=== PATIENT | female | born 1950 | race Caucasian/White ===

== ENCOUNTER → 2019-04-02 | Outpatient (CLI) | payer OTHER, MEDICARE ==
--- NOTE | 2019-04-03 10:29 | REP ---
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 No comparison imaging. The patient reports a having had a partial left glossectomy on February 08, 2019. There is also a remote prior history of gender transition/sexual re-assignment surgery. I am not aware if this patient has undergone or is undergoing radiation therapy. COMPARISONS: No comparison imaging. TECHNIQUE: 47 minutes following the intravenous injection of a 8.55 mCi dose of F-18 FDG, three-dimensional PET scintigraphy is acquired from the skull base to the proximal thighs. Triplanar noncontrast CT scanning is acquired through the same anatomic range for attenuation correction, and image registration with scan parameters optimized to minimize radiation exposure to the patient. PET scintigraphy and CT datasets were fused and displayed on a workstation with multiplanar and projection display capability. PET/CT FINDINGS: There is asymmetric skeletal muscle hypermetabolic uptake in the remaining right side of the tongue and in the floor of mouth structures. There is no mass or adenopathy here on accompanying CT and this it is most likely normal variant skeletal muscle uptake possibly related to recent surgery and if given, radiation therapy. Maximum standard uptake value in the tongue is 9.95, in the right floor of the mouth 8.71, and in the left floor the mouth 7.87. There is no meme hypermetabolic uptake in the head and neck soft tissues. There is an area of mild fascial edema and/or thickening resembling inflammation in the subcutaneous fat and underlying fascia in the upper mid back just to the right of midline between the scapulae. There is hypermetabolic uptake here, mild in degree, maximum standard uptake value 3.77. This is of uncertain significance. There is no clearly defined mass. Question history of trauma or inflammatory changes in this location. There is no abnormal intrathoracic hypermetabolic uptake. No lung mass or significant nodule is appreciated. Breast augmentation implants are visible. There is no abnormal hypermetabolic uptake in the abdomen or pelvis. There is a feeding gastrostomy tube in the epigastric region with very slight metabolic activity at its insertion site . There is mild skeletal muscle uptake adjacent to the greater trochanters bilaterally. No abnormal pelvic hypermetabolic uptake. IMPRESSION: There is non-meme skeletal muscle hypermetabolic uptake in the remaining right tongue and floor of mouth musculature bilaterally most likely normal variant. No hypermetabolic adenopathy is seen in the head and neck soft tissues. There is a focus of mildly hypermetabolic uptake of uncertain significance and the myofascial subcutaneous fat interface in the upper mid back just to the right of midline. This requires correlation with physical exam and history to further evaluate. No clearly definable mass. Otherwise negative. Electronically Signed by Froilan Flores MD 04/03/2019 01:45 P
== END ==
LOC: M PLARAD 10:56
DX: C02.9 Malignant neoplasm of tongue, unspecified (principal)
CPT/HCPCS: 78815; A9552

== ENCOUNTER → 2019-04-18 | Outpatient (CLI) | payer OTHER, MEDICARE ==
[~2019-04-18] MED LIST: AMLO10TA5 PO; ARIP1TAB44 PO; GABA-843 PO; LORA1TAB12 PO; PRAV40TA2 PO; QUET400T PO; SERT-138 PO; SPIR100T3 PO; SYNT88TA2 PO; TRAZ-252 PO
--- NOTE | 2019-04-19 15:55 | RADONC ---
RADIATION ONCOLOGY CONSULTATION NOTE DATE: 04/18/2019 CHART NUMBER: [id number] DIAGNOSIS: Left sided tongue carcinoma. STAGE: IVB, pT3, pN3B, M0, grade 3. ECOG PERFORMANCE STATUS: 0. CONSULTATION NOTE: Ms. 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 HISTORY OF PRESENT ILLNESS: The patient was in the usual state of health who was found to have a lesion present over her left tongue. On 02/13/2019 the patient underwent a left hemiglossectomy and left radical neck dissection. Pathology revealed a 4.5 cm x 3.2 cm x 1.8 cm poorly differentiated squamous cell carcinoma of the left lateral tongue. The tumor thickness was 17 mm and the depth of invasion was 14 mm. The closest margin of resection was 6 mm. Lymphovascular invasion was present. Perineural invasion was present. A total of 45 cervical lymph nodes were sampled and four were positive for metastatic disease. The largest metastatic lymph node was measured at 4 cm. There was noted to be extranodal extension present. The lymph nodes were present at levels Ib, as well as level II and level IV in the neck. The patient is healing nicely since surgery and is now presenting to us for discussion of postoperative radiation therapy as a therapeutic option. PAST MEDICAL HISTORY: The patient's past medical history is positive for hyperlipidemia, actinic keratosis, hypothyroidism, depressive disorder, transsexual conversion, augmented mammoplasty with prostatic implants, hypercalcemia, borderline personality disorder, methicillin-resistant Staphylococcus aureus, abnormal liver functions, obesity, benign essential hypertension, impaired fasting glucose, hypertension, hypothyroidism, dysplastic oral leukoplakia. ALLERGIES: The patient is allergic to VIOXX, PROZAC and ZOLOFT. She is also reported to be allergic to GEMFIBROZIL. SOCIAL HISTORY: The patient does not smoke cigarettes nor abuse alcohol. FAMILY HISTORY: The patient's family history is positive for a mother with cervical cancer. REVIEW OF SYSTEMS: The patient's review of systems is positive for some physical limitations as well as difficulty swallowing and speaking since tongue surgery. She has some decreased energy as well as shortness of breath. Review of systems is otherwise noncontributory. She denies nausea, vomiting, fevers, chills, night sweats, diplopia, headaches, anxiety, anorexia, weight loss, visual disturbances, bowel difficulties, hearing loss, chest pains, rectal bleeding. PHYSICAL EXAMINATION: The patient is a well-developed 68-year-old white transgender female who in no acute distress. HEENT: Exam is normocephalic, atraumatic. Extraocular movements are intact. Examination of the patient's oral cavity reveals poor dentition. She is missing many teeth. She is also status post hemiglossectomy consistent with her above history. I do not appreciate any nodularity, ulceration or evidence of recurrent disease in the oral cavity. There is no palpable cervical preauricular, cervical, supraclavicular, infraclavicular, or axillary lymphadenopathy present. She has a healed surgical scar present consistent with her left modified radical lymph node dissection. Her lungs are clear to auscultation and percussion. Her heart has regular rate and rhythm. The remainder of her physical exam was deferred at this time. MEDICAL NECESSITY: IMRT/IGRT is clinically indicated for the highly conformal dose planning required. The target volume is in close proximity to critical structures, such as the normal brain, brainstem, eyes, optic nerves, spinal cord, parotid glands, and mandible. The volume of interest must be covered with narrow margins to adequately protect immediately adjacent structures. The plan requires interpretation of complex testing such as CT localization. As noted above, special planning (IMRT) and localizing (IGRT) is required and essential to maximally protect sensitive normal tissue structures which cannot be accomplished using conventional 3-dimensional planning. ASSESSMENT: Clearly the patient is a candidate for external beam radiation therapy and I have so informed her. I have discussed with the patient in detail the potential benefits as well as possible acute and chronic sequelae of external beam radiation therapy. We discussed the logistics of treatment planning, simulation and subsequent fractionated daily radiation treatments. The patient already has a PEG tube in place which should expedite the initiation of our therapy. She has been instructed given dietary instructions as well as oral cavity instructions and we have discussed the use of the PEG tube and feed thereof. The patient reports that she was seen by her dentist, Dr. Juanis Roldan, in [place], [place], just 3 months ago. I am referring her back and asked her to contact Dr. Roldan's office to get dental clearance prior to initiation of radiation. I made clear that any dental extractions need to be done prior to radiation beginning. I once again have discussed the various difficulties with radiation treatment. The patient has been seen her medical oncologist, Dr. Deal, just prior to my visit. I am deferring to Dr. Deal and the patient with regards to the role of any systemic therapy. I have however reviewed NCCN guidelines version 3.2019 regarding oral cavity carcinoma. In this case this patient has a stage T3 disease which underwent surgery and primary lymph node dissection for what turned out to be a pathologic stage NIIIB. The guidelines recommend systemic therapy as well as RT for people with adverse features. Those adverse features include extranodal extension, positive margins, pathologic stage T3 lesions as well as pathologic meme NIII disease or meme disease at levels IV and V as well as perineural invasion and lymphatic invasion. The patient has all of these risk features. This put her at very high risk and I suspect Dr. Deal will recommend combined radiaiton with systemic therapy. This is a category I recommendation according to the NCCN guidelines. I have also placed this patient on our list for discussion at our multidisciplinary tumor conference. Further recommendations will be made as indicated. Thank you for allowing us to participate in the care of this very pleasant woman, if I could be of any further assistance please free to contact me at anytime. CC: Dr. Angelica Zhong cc: MD COCO Cadena
== END ==
LOC: M ONCR 12:47
PROVIDERS: ATTEND Radiology Radiation Oncology
DX: C02.9 Malignant neoplasm of tongue, unspecified (principal)

== ENCOUNTER → 2019-04-22 | Outpatient (CLI) | payer OTHER, MEDICARE ==
[~2019-04-22] MED LIST changes: +LIDOCAINE 1% MDV 20ML VIAL As Ordered ONE; +ceFAZolin 1GM INJ (J0690 PER 500MG) As Ordered ONE
[2019-04-22 15:08] VITALS: BP 169/72
--- NOTE | 2019-04-22 15:49 | REP ---
IR Ultrasound and fluoroscopy-guided port placement. IR Ultrasound of the neck. Clinical information: Head and neck cancer. Physician: Dr. Castelan. Procedure: The patient was advised of the benefits, risks, and alternatives of the procedure and informed consent was obtained. A time-out was performed with verification of the patient's name, MRN, site of procedure and type of procedure to be performed. The patient was positioned in the supine position on the angiographic table. The site was prepped and draped in the usual sterile fashion. Moderate sedation was not performed. The physician spent 45 minutes of continuous face to face time with the patient. Ultrasound of the neck reveals a patent and compressible right internal jugular vein. A charge operator radiograph reveals no gross abnormality. The neck and anterior chest wall were anesthetized with lidocaine. The right internal jugular vein was accessed using a microintroducer needle under ultrasound guidance, via a lateral approach. An 018 wire was advanced into the superior vena cava, the needle was removed and a microsheath was placed. An Amplatz wire was then passed into the inferior vena cava. An incision at the internal jugular vein access site and anterior chest wall were made using a scalpel. An incision was made at the anterior chest wall. A small pocket was created using a combination of blunt and sharp dissection. A tunneling device was then used to pass the catheter from the pocket to the neck puncture site. An 8-Macanese Angio dynamics Smart power port was then positioned in the pocket. The catheter was then measured and cut. The introducer sheath was exchanged for a peel-away sheath. The catheter was passed through the peel-away sheath into the internal jugular vein and the peel-away sheath was removed. The port tip was positioned at the cavoatrial junction . The port was then accessed with a Wen needle. The port flushes and aspirates well. The puncture site in the neck was closed. The chest wall incision was then closed with 2-0 Vicryl and 4-0 Monocryl. Glue and Steri-Strips were applied. A sterile dressing was then applied. The patient tolerated the procedure well and was returned to the PRU in stable condition. Estimated blood loss: <5 ml. Complications: None. Conclusion: 1. Successful placement of an 8-Macanese Angio dynamics Smart power port via the right internal jugular vein. The port is ready for immediate use. 2. Patient to follow up in IR clinic in 2 weeks. Thank you for this referral. Electronically Signed by Domitila Castelan MD 04/22/2019 03:48 P
== END ==
LOC: M IRPRO 08:56
PROVIDERS: ATTEND Radiology Diagnostic Radiology
DX: C76.0 Malignant neoplasm of head, face and neck (principal)
CPT/HCPCS: 36561; 76937; C1769; C1788; C1894; J0690

== ENCOUNTER → 2019-04-23 | Outpatient (CLI) | payer OTHER, MEDICARE ==
[~2019-04-23] MED LIST changes: +ISOVUE-370 76% 100ML VIAL (Q9967) As Ordered ONE; -LIDOCAINE 1% MDV 20ML VIAL As Ordered ONE; -ceFAZolin 1GM INJ (J0690 PER 500MG) As Ordered ONE
--- NOTE | 2019-04-24 07:08 | REP ---
Clinical: History of head and neck cancer. Technique: Axial contrast enhanced images from the thoracic inlet to the upper abdomen with coronal and sagittal re-formations using 100 ml Isovue 370 intravenous contrast material. Comparison: PET-CT dated 04/02/2019. Chest CT dated 02/07/2019. Findings: The bilateral lung noguera are well-aerated and clear. No focal consolidation, nodule or mass lesion is appreciated. No pleural effusion. No pneumothorax. The tracheobronchial tree is patent. The mediastinum appears normal and without adenopathy. Thoracic aorta, pulmonary vasculature and heart/pericardium are within normal limits. Surrounding musculoskeletal structures are intact without focal abnormality. 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 Impression: 1. No obvious significant mediastinal or pleuroparenchymal process appreciated. Electronically Signed by Abdelrahman Rosales MD 04/24/2019 06:59 A
--- NOTE | 2019-04-24 08:40 | REP ---
CT soft tissue neck: 04/23/2019. Indication: Carcinoma. Comparison: Last month. Technique: Axial images of the neck soft tissues were obtained following 75 ml of IV Isovue 370 with coronal and sagittal reconstructions provided. Findings: Evaluation of the tongue is suboptimal secondary to adjacent dental amalgam associated streak artifact. No definite area of focal pathologic IV contrast enhancement is detected. Postoperative sequelae are present. There is no evidence of cervical lymphadenopathy. Bilateral carotid atherosclerotic disease is present. Please see dedicated chest CT report for additional details. The nondominant right vertebral artery appears to end as PICA. No acute ocular, intraorbital or intracranial abnormalities are detected. Impression: Stable examination compared to last month. No definite solid soft tissue pathologic mass, fluid collection or cervical lymphadenopathy. Electronically Signed by Benjamin Salcedo DO 04/24/2019 08:32 A
== END ==
LOC: M RAD 16:16
PROVIDERS: ATTEND Internal Medicine Medical Oncology
DX: C02.9 Malignant neoplasm of tongue, unspecified (principal); Z95.828 Presence of other vascular implants and grafts
CPT/HCPCS: 70491; 71260; Q9967

== ENCOUNTER → 2019-05-07 | Outpatient (POV) | payer OTHER, MEDICARE ==
[~2019-05-07] VITALS: Ht 175.3 cm; Wt 95.5 kg
[~2019-05-07] MED LIST changes: -ISOVUE-370 76% 100ML VIAL (Q9967) As Ordered ONE
[2019-05-07 09:00] VITALS: BP 131/73
--- NOTE | 2019-05-08 08:22 | IRPN ---
[facility] IR Progress Note IR Progress Note DATE: May 07, 2019 FOLLOW-UP: Status post port placement. Patient doing well. No fevers or chills. No pain. Port has not been used yet. ON EXAMINATION: Port site looks to be healing well. No redness, tenderness, discharge or fluctuance. IMPRESSION: Doing well status post port placement. Patient's port has not been accessed yet. Port was flushed and instilled with heparin today. No further follow-up required unless initiated by patient and or referring provider. Thank you for this referral Allergies Coded Allergies: rofecoxib (Verified Adverse Reaction, Mild, RESTLESS LEGS, 04/18/19) RESTLESS LEGS VS,Fishbone, I+O VS, Fishbone, I+O Vital Signs Date Time Temp Pulse Resp B/P (MAP) Pulse Ox O2 Delivery O2 Flow Rate FiO2 05/07/19 09:00 97.9 81 16 131/73 (92) 99 Room Air ANDER METCALF MD May 08, 2019 08:22
== END ==
LOC: M IRPOV 08:42
PROVIDERS: ATTEND Radiology Diagnostic Radiology
DX: Z45.2 Encounter for adjustment and management of vascular access device (principal)

== ENCOUNTER 2019-06-04 08:37 | Outpatient (CLI) | payer OTHER, MEDICARE ==
[~2019-06-04] VITALS: Ht 175.3 cm; Wt 95.5 kg
[2019-06-04 08:45] VITALS: BP 127/68
[2019-06-04] MEDS ORDERED: SODIUM CHLORIDE 0.9% INJ 10 ML SYR IV SCH (09:00)
[2019-06-10] MEDS ORDERED: ONDA8TAB7 PO (14:04)
[2019-06-10] MEDS ORDERED: PROC10TA4 PO (14:07)
[2019-06-10] MEDS ORDERED: OLAN10TA2 PO (14:07)
[2019-06-10] MEDS ORDERED: DEXA4TA PO ×2 (15:19→15:59)
== END 2019-06-04 09:25 | disposition home or self-care (01) ==
LOC: M INFU 08:37
PROVIDERS: ATTEND Radiology Diagnostic Radiology
DX: C02.1 Malignant neoplasm of border of tongue (principal); Z88.6 Allergy status to analgesic agent

== ENCOUNTER → 2019-06-18 | Outpatient (RCR) | payer OTHER, MEDICARE ==
[2019-05-30 09:53] LABS: BASO % 0.3 % (0.0-1.0); EOS # 0.2 10^3/uL (0.0-0.5); EOS % 2.6 % (0.0-3.0); HEMATOCRIT 40.9 % (36.0-47.0); HEMOGLOBIN 13.3 g/dl (12.0-15.5); LYMPH # 1.3 10^3/uL (1.5-5.0); LYMPH % 17.7 % (24.0-44.0); MEAN CORPUSCULAR HEMOGLOBIN 30.1 pg (27.0-33.0); MEAN CORPUSCULAR HGB CONC 32.5 g/dl (32.0-36.5); MEAN CORPUSCULAR VOLUME 92.5 fl (80.0-96.0); MONO # 0.8 10^3/uL (0.0-0.8); MONO % 10.6 % (0.0-5.0); NEUTROPHILS # 4.8 10^3/uL (1.5-8.5); NEUTROPHILS % 67.9 % (36.0-66.0); PLATELET COUNT, AUTOMATED 281 10^3/uL (150-450); RED BLOOD COUNT 4.42 10^6/uL (4.00-5.40); WHITE BLOOD COUNT 7.1 10^3/uL (4.0-10.0)
--- NOTE | 2019-05-31 07:45 | RADONC ---
RADIATION ONCOLOGY SIMULATION NOTE DATE: 05/30/2019 CHART NUMBER: [id number] Ms. Mcknight was taken to the CT scan for CT simulation of her head and neck field. CT was accomplished without difficulty or discomfort. Radiation treatment planning is underway and radiation treatments will begin subsequently. An immobilization device was created without difficulty or discomfort. It will be used throughout the course of treatment. A mask was included with that immobilization device. I was physically present throughout the course CT simulation.
--- NOTE | 2019-06-17 12:06 | RADONC ---
RADIATION ONCOLOGY PROGRESS NOTE DATE: 06/17/2019 CHART #: [id number] Luciana Mcknight with a diagnosis of carcinoma of the tongue is currently receiving local regional radiotherapy via IMRT and she has achieved a dose to date of 600 cGy. She is tolerating her radiotherapy reasonably well and denies any nausea, vomiting, coughing, sputum production, hemoptysis, significant alteration of taste, redness of the mouth or oral pain. Her energy level is somewhat diminished, but she is able to maintain most of her day-to-day activities without any alteration of her lifestyle. EXAMINATION FINDINGS: The skin within the irradiated volume shows neither erythema nor desquamation. There is no palpable peripheral lymphadenopathy noted in the cervical, supraclavicular, axillary or inguinal lymph node chains. Lungs are clear to auscultation and percussion. Examination of the oral cavity reveals no evidence of mucositis. No lymph nodes are palpable. IMPRESSION: Tolerating therapy well. PLAN: Treatments to continue.
[~2019-06-18] MED LIST changes: +DEXA4TA PO; +OLAN10TA2 PO; +ONDA8TAB7 PO; +PROC10TA4 PO
== END ==
LOC: M ONCR 05-30 09:24
PROVIDERS: ATTEND Radiology Radiation Oncology
DX: C02.1 Malignant neoplasm of border of tongue (principal)

== ENCOUNTER → 2019-07-19 | Outpatient (RCR) | payer OTHER, MEDICARE ==
--- NOTE | 2019-06-25 06:47 | RADONC ---
RADIATION ONCOLOGY PROGRESS NOTE DATE: 06/24/2019 CHART NUMBER: [id number] Ms. Mcknight is presently at a dose of 1440 cGy to her tongue and overall is tolerating her treatments fairly well. She is complaining of some dizziness, a cough with some thickening sputum as well as taste changes. REVIEW OF SYSTEMS: The patient's review of systems is noncontributory. She denies nausea, vomiting, fevers, chills, night sweats, diplopia, headaches, anxiety or depression, anorexia, weight loss, visual disturbances, chest pain, urinary or bowel difficulties, bone pain, or neurological problems. PHYSICAL EXAMINATION: The patient's skin is in good condition with no evidence of radiation change present. There is no moist or dry desquamation. The remainder of her physical exam remains unchanged. Ms. Mcknight is tolerating treatments fairly well and radiation will continue as scheduled. We will continue to monitor her with regards to her cough and other issues.
--- NOTE | 2019-07-02 08:38 | RADONC ---
RADIATION ONCOLOGY PROGRESS NOTE DATE: 07/01/2019 CHART NUMBER: [id number] PROGRESS NOTE: Ms. Mcknight is presently at a dose of 2400 cGy to her oral cavity and is tolerating treatments with some difficulty. She reports a change in her saliva, although she is still able to swallow. She is using her feeding tube for medications. She reports that she is taking 5 cans of dietary supplement day. REVIEW OF SYSTEMS: The patient's review of systems is positive for some discomfort upon swallowing but is otherwise largely noncontributory. Denies nausea, vomiting, fevers, chills, night sweats, diplopia, headaches, anxiety or depression, anorexia, weight loss, visual disturbances, chest pain, urinary or bowel difficulties, bone pain, or neurological problems. PHYSICAL EXAMINATION: The patient's skin is in good condition with no evidence of moist or dry desquamation. Her oral cavity shows some mild mucositis. Her saliva appears thickened. The remainder of her physical exam is largely unchanged except her weight, which is down 2.4 pounds this week. ASSESSMENT: The patient is tolerating treatments well. She has been given dietary instructions. I have instructed her to gargle with warm water salt and baking soda routinely. She is also using Miracle Mouthwash. Radiation is tolerated at this point and will continue as scheduled.
--- NOTE | 2019-07-08 11:22 | RADONC ---
RADIATION ONCOLOGY PROGRESS NOTE DATE: 07/08/2019 CHART NUMBER: [id number] Ms. Mcknight is presently at a dose of 3400 cGy to her tongue and is tolerating treatments fairly well with no significant difficulties related to her radiation therapy other than discomfort and pain of the face with swallowing. The patient's review of systems is positive for pain upon swallowing and discomfort of the muscle the face but is otherwise noncontributory. She denies nausea, vomiting, fevers, chills, night sweats, diplopia, headaches, anxiety or depression, anorexia, weight loss, visual disturbances, chest pain, urinary or bowel difficulties, bone pain, or neurological problems. PHYSICAL EXAMINATION: The patient's skin is in good condition with no evidence of moist or dry desquamation. Her oral cavity shows some mild mucositis. Her weight today is actually up 1 pound at 218 pounds. The remainder of physical exam remains unchanged. Ms. Mcknight is tolerating treatments quite well and radiation will continue as scheduled.
--- NOTE | 2019-07-16 15:20 | RADONC ---
RADIATION ONCOLOGY PROGRESS NOTE DATE OF SERVICE: 07/15/2019 CHART NUMBER: [id number] Ms. Mcknight is presently a dose of 4400 cGy to her tongue and overall is tolerating her treatments fairly well. She reports that her taste sensation has changed. She continues to drink diet Pepsi. She is taking five to six cans of dietary supplements via her feeding tube a day. She continues to have some discomfort in the throat upon swallowing. The patient's review of systems is noncontributory. Denies nausea, vomiting, fevers, chills, night sweats, diplopia, headaches, anxiety or depression, anorexia, weight loss, visual disturbances, chest pain, urinary or bowel difficulties, bone pain, or neurological problems. PHYSICAL EXAMINATION The patient's skin is in good condition with no evidence of moist or dry desquamation. Her oral cavity shows some mucositis present. Her weight is down 8 pounds. The remainder of her physical exam remains unchanged. The patient reports that she gained 30-35 pounds prior to initiation of treatment because she knew she would be losing weight. She is doing quite well at this point and radiation will continue as scheduled. I recommend that she discontinue drinking diet Pepsi as carbonated drinks may cause more discomfort. I have given her dietary recommendations.
[~2019-07-19] MED LIST changes: +LEVA1TAB2 PO; -LORA1TAB12 PO; +LORA1TAB4 PO; +ONDA8TAB10 PO; -ONDA8TAB7 PO; +SILV40CR EXT
== END ==
LOC: M ONCR 06-20 07:34
PROVIDERS: ATTEND Radiology Radiation Oncology
DX: C02.1 Malignant neoplasm of border of tongue (principal)

== ENCOUNTER 2019-07-30 07:26 | Outpatient (RCR) | payer OTHER, MEDICARE ==
--- NOTE | 2019-07-22 09:43 | MEDONC ---
MEDICAL ONCOLOGY TELEPHONE CALL DATE OF SERVICE: 07/20/2019 I called Luciana to inquire how her oral symptoms are. She says the primary issue is clearing saliva and her gag reflex. From the time she was a small child, she has had difficulties with gag reflex. From her primary care doctor, she got a prescription for Magic Mouthwash and is swish and spitting and swish and swallowing this. It seems to be helping somewhat. I asked if she needed an oral rinse for pain per se, and she declined. I offered an oral rinse of morphine (a 2% solution can be given 10-15 mL every 3 hours p.r.n. for radiation esophagitis pain), but she declined. We talked about her fluid intake via PEG, her Boost intake. She is trying to keep to four cans a day. She asks about TPN. I counseled this is a last resort given the risk for infection. She asked if dextrose could be added to her daily fluids. We can absolutely do this, but as long as she is able, I asked her to please continue taking in the liquid food by PEG. Meanwhile, she says she will continue through the weekend with Magic Mouthwash, using this every few hours. She has gotten on a schedule, and it seems to be helping somewhat. She will let us know if she needs something more. This call was at 4:00 p.m. on 07/20/2019. Electronically Signed by Jackelyn Deal MD 07/22/2019 05:14 P DD: Jackelyn Deal MD 07/20/2019 03:58 P DT: aml 07/22/2019 09:37 A CC:
--- NOTE | 2019-07-22 13:09 | RADONC ---
RADIATION ONCOLOGY PROGRESS NOTE DATE: 07/22/2019 CHART NUMBER: [id number] PROGRESS NOTE: Ms. Mcknight is presently at a dose of 5400 cGy to her oral tongue and overall is tolerating her treatments remarkably well. At this time, she reports just some moderate amount of discomfort upon swallowing. She does have some xerostomia. Her skin is not causing her any problems. REVIEW OF SYSTEMS: The patient's review of systems is positive for the above, but is otherwise noncontributory. Denies nausea, vomiting, fevers, chills, night sweats, diplopia, headaches, anxiety or depression, anorexia, weight loss, visual disturbances, chest pain, urinary or bowel difficulties, bone pain, or neurological problems. PHYSICAL EXAMINATION: The patient's weight today is 208.4 pounds, down 2 pounds since last week. Her skin is in good condition with no evidence of moist or dry desquamation. There is some erythema present. Her oral cavity reveals moderate amount of mucositis. There is some xerostomia present. The remainder of physical exam is unchanged. Ms. Mcknight is tolerating her treatments quite well. Once again, we have reinforced the need for continued gargling with some warm water, a little salt and baking soda to keep her mouth fresh. I have suggested that she do this even hourly if her mucous becomes thick. She reports that she has been doing this more frequently and is actually doing quite well. In addition, the patient does have a bottle of viscous lidocaine which she is carrying with her. I have taken a xerox of that. Apparently, she reports that she has only needed to use it twice since initiation of treatment and is not having significant pain. The patient does have a low grade fever today at 101.3 degrees. Her lungs are clear to auscultation and percussion. In light of the low grade fever, I have ordered a CBC to be done with differential today. In addition, I have given the patient a prescription for Levaquin antibiotics. Radiation will continue as scheduled and is approaching completion.
--- NOTE | 2019-07-29 10:58 | RADONC ---
RADIATION ONCOLOGY PROGRESS NOTE DATE OF SERVICE: 07/29/2019 CHART NUMBER: [id number]. 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 So far, she has received dose of 6400 cGy. Her main concern is weight loss. She has lost about 5 pounds since last week, and she has dryness of mouth and producing thick phlegm. She is using gargling with warm water and baking soda. REVIEW OF SYSTEMS: As mentioned. She has lost about 5 pounds since last week. She denies nausea, vomiting, fever, chills, and night sweats. She has dryness of mouth and also producing thick sputum. PHYSICAL EXAMINATION: There is dry desquamative skin reaction on the left supraclavicular area. She said it is improved with silvadene cream. Oral cavity shows moderate amount of mucositis and thick saliva. The PEG site is clear. Overall, she is tolerating treatment well. She was advised continuous mouthwash and gargling with warm water and baking soda. She is also using viscous lidocaine. She is recommended continuous treatment as planned. MTDD
--- NOTE | 2019-07-30 15:06 | RADONC ---
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 STAGE: Pathological stage pT3, N2, M0. Ms. Mcknight had the diagnosis of the oral tongue and she is status post glossectomy and neck dissection on 03/08/2019. She started radiation therapy on 06/13/2019. So far he has recieved dose of 7000 cGy in 35 fractions from to 07/30/2009 in 47 elapsed days. Radiation therapy was delivered using IMRT with 6 Mev photon beams. Her treatment was uneventful. She developed significant skin reactions in both supraclavicular area and she was treated with Silvadene cream with some improvement. She was advised to continue followup care with the physicians involved and she was also asked to return here in 1 month for followup. COCO
[2019-07-31] MEDS ORDERED: PRAV40TA2 PO (23:57)
[2019-08-01] MEDS ORDERED: DEXA4TA PO (00:46)
[2019-08-07] MEDS ORDERED: SCOP1PAT2 TOP (17:21)
[2019-08-07] MEDS ORDERED: ATRO1OPD SL (17:21)
== END 2019-08-17 ==
LOC: M ONCR 07:26
PROVIDERS: ATTEND Radiology Radiation Oncology
DX: C02.1 Malignant neoplasm of border of tongue (principal)

== ENCOUNTER 2019-07-31 16:33 | Inpatient (IN) | payer OTHER, MEDICARE ==
[~2019-07-31] VITALS: Ht 175.3 cm; Wt 92.4 kg
[2019-07-31 18:16] LABS: HEMATOCRIT 29.7 % (36.0-47.0); HEMOGLOBIN 9.6 g/dl (12.0-15.5); MEAN CORPUSCULAR HEMOGLOBIN 30.2 pg (27.0-33.0); MEAN CORPUSCULAR HGB CONC 32.3 g/dl (32.0-36.5); MEAN CORPUSCULAR VOLUME 93.4 fl (80.0-96.0); PLATELET COUNT, AUTOMATED 258 10^3/uL (150-450); RED BLOOD COUNT 3.18 10^6/uL (4.00-5.40); WHITE BLOOD COUNT 2.8 10^3/uL (4.0-10.0)
[2019-07-31 18:33] LABS: CREATININE FOR GFR 2.1 MG/DL (0.55-1.30); POTASSIUM SERUM 4.8 MEQ/L (3.5-5.1)
[2019-07-31 19:15] LABS: ANISOCYTOSIS 1+; ATYPICAL LYMPH 3 % (0-5); EOSINOPHILS 2 % (0-3); LYMPHOCYTES 9 % (16-44); METAMYELOCYTES 1 % (0-0); MONOCYTES 12 % (0-5); MYELOCYTES 1 % (0-0); NEUTROPHILS 57 % (28-66); OVALOCYTES 1+; PLATELET ESTIMATE NORMAL (NORMAL); POIKILOCYTOSIS 1+; POLYCHROMASIA 1+
[2019-07-31] MEDS ORDERED: NS 500 ML IV ONE ×2 (21:30→23:15)
[2019-07-31] MEDS ORDERED: PRAV40TA2 PO (23:57)
[2019-08-01 00:21] LABS: ALBUMIN 3.1 GM/DL (3.2-5.2); BILIRUBIN,DIRECT 0.3 MG/DL (0.0-0.2); BILIRUBIN,TOTAL 0.6 MG/DL (0.2-1.0); TOTAL PROTEIN 6.7 GM/DL (6.4-8.2)
[2019-08-01] MEDS ORDERED: PROCHLORPERAZINE 5 MG TAB (S0183) PO PRN (00:30)
[2019-08-01] MEDS ORDERED: OLANZapine 10 MG TAB PO PRN (00:30)
[2019-08-01] MEDS ORDERED: ONDANSETRON 4 MG TAB (S0181) PO PRN (00:30)
[2019-08-01] MEDS ORDERED: NS 1,000 ML IV ONE (00:30)
[2019-08-01] MEDS ORDERED: DEXA4TA PO (00:46)
[2019-08-01 03:25] VITALS: BP 123/50
[2019-08-01] MEDS ORDERED: PILL CUTTER 1 EACH XX PRN (03:45)
[2019-08-01] MEDS: ARIPiprazole 10 MG TAB PO SCH ×3 (03:47→20:58)
[2019-08-01] MEDS: GABAPENTIN 300 MG CAP PO SCH ×4 (03:48→20:57)
[2019-08-01] MEDS: QUEtiapine FUMARATE 200 MG TAB PO SCH ×2 (03:58→20:57)
[2019-08-01] MEDS: LORazepam 1 MG TAB PO SCH ×2 (03:58→20:58)
[2019-08-01] MEDS: traZODone 50 MG TAB PO SCH ×2 (03:58→20:58)
[2019-08-01] MEDS: PRAVASTATIN 20 MG TAB PO SCH ×2 (03:59→20:57)
[2019-08-01] MEDS: SILVER SULFADIAZINE 1% CR 400 GM JAR EXT SCH ×4 (03:59→20:59)
[2019-08-01] MEDS: SCOPOLAMINE 1MG TRANSDERMAL PATCH TOP SCH (04:01)
[2019-08-01 06:00] VITALS: BP 117/53
--- NOTE | 2019-08-01 07:34 | REP ---
Clinical: Cough. Possible aspiration . Comparison: None Findings: The mediastinum and cardiac silhouette are stable and within normal limits for portable technique. [id number]-[id number] with tip in the SVC. The lung noguera are clear without acute consolidation, effusion, or pneumothorax. Skeletal structures are intact. Impression: No acute cardiopulmonary process appreciated. Electronically Signed by Abdelrahman Rosales MD 08/01/2019 07:26 A
[2019-08-01 08:41] LABS: HEMATOCRIT 24.2 % (36.0-47.0); HEMOGLOBIN 8.2 g/dl (12.0-15.5); MEAN CORPUSCULAR HEMOGLOBIN 31.7 pg (27.0-33.0); MEAN CORPUSCULAR HGB CONC 33.9 g/dl (32.0-36.5); MEAN CORPUSCULAR VOLUME 93.4 fl (80.0-96.0); PLATELET COUNT, AUTOMATED 206 10^3/uL (150-450); RED BLOOD COUNT 2.59 10^6/uL (4.00-5.40); WHITE BLOOD COUNT 2.3 10^3/uL (4.0-10.0)
--- NOTE | 2019-08-01 09:01 | HPE ---
DATE OF ADMISSION: 08/01/2019 PRIMARY CARE PROVIDER: [facility] [place] ONCOLOGIST: Dr. Jackelyn Deal. CHIEF COMPLAINT: Dehydration and thick secretions with inability to swallow. HISTORY OF PRESENT ILLNESS: Luciana is a 68-year-old female with a past medical history pertinent for stage IV [id number] left sided tongue carcinoma diagnosed in January 2019 status post left hemiglossectomy, modified radical left neck dissection with high-risk features including lymphovascular and perineural invasion, four positive lymph nodes (large is 4 cm), extranodal extension, status post chemo and radiation who presents to the emergency department due to dehydration with difficulty swallowing and excessive secretions. She says that ever since she began radiation therapy, she has had excessive secretions are thick and trigger her already very sensitive gag reflex. When this happens she will vomit the entire contents of her stomach. She does have a PEG tube and does do canned feedings and does do tube feedings. She was supposed to go to chemo today, but due to excessive gagging secondary to her secretions and feeling weak and dehydrated. She presented to the emergency department instead. She denies fevers or feeling overtly nauseous. She denies diarrhea, hematemesis, melena or hematochezia. She just feels weak and tired and hydrated. She feels quite thirsty. Due to the vomiting, she has been unable to keep down her tube feedings. PAST MEDICAL HISTORY: Left side tongue carcinoma status post left hemiglossectomy and modified radical left neck dissection, chemo and radiation, hyperlipidemia, hypothyroidism, depression, impaired fasting glucose. SURGERIES: Left neck radical dissection and left hemiglossectomy, sexual reassignment surgery, both upper and lower. HOME MEDICATIONS: Amlodipine 5 mg by mouth daily aripiprazole 15 mg by mouth daily, dexamethasone 8 mg by mouth twice a day, days two through five after chemo treatment, gabapentin 300 mg by mouth three times a day, Synthroid 88 mcg by mouth daily, lorazepam 1.5 mg by mouth at bedtime, olanzapine 10 mg by mouth daily as needed for severe nausea, Zofran 8 mg by mouth every 6 hours as needed for nausea or vomiting. Pravastatin 20 mg by mouth at bedtime, prochlorperazine 10 mg by mouth every 8 hours as needed for nausea, quetiapine 400 mg by mouth at bedtime, sertraline 150 mg by mouth daily, Silvadene topical three times a day three times a day, to the neck skin in the areas of radiation, spironolactone 400 mg by mouth daily, trazodone 150 mg by mouth at bedtime. FAMILY HISTORY: Mother from cervical cancer, dad from lung cancer and her in 2000 from pancreatic cancer. SOCIAL HISTORY: The patient is a never smoker for tobacco products, never used chewing tobacco. She used to smoke weed occasionally. She denies any alcohol or other illicit substances. She does have a cat at home. She denies any recent travel but had visited [facility], [facility], [facility], the [facility] and [facility] during her time in the [employer] which she left in 1976. She was not in the [place] war. She is a her in 2010 from pancreatic cancer. She otherwise lives alone. CODE STATUS: The patient wishes to be full code. REVIEW OF SYSTEMS: Constitutional: Denies weight changes, fevers, chills or night sweats. Positive for general malaise. HEENT: Denies any visual changes, double vision, headache, eye pain, blind spots or feeling like a curtain got pulled down. Ear, nose, throat: Denies runny nose, epistaxis, sinus pain, tinnitus, gingival bleeding. Positive for excessive secretions and difficulty swallowing with an overactive gag reflex. Cardiovascular: Denies chest pain, shortness of breath, paroxysmal nocturnal dyspnea, orthopnea, edema or palpitations. Respiratory: Positive for an occasional cough secondary to her gag reflex. Denies sputum production wheezes, hemoptysis or shortness of breath Gastrointestinal: Positive for nausea related to her gag reflex and vomiting. Denies abdominal pain, diarrhea, constipation, obstipation, hematemesis, hematochezia, melena or tenesmus. Genitourinary: Denies incontinence, dysuria, hematuria, nocturia, polyuria or hesitancy Musculoskeletal: Denies any new joint swelling, decreased range of motion, crepitus or muscle pain. Integumentary: Positive for skin changes related to radiation on the neck but denies any other new pruritus, rashes stria or lesions. Neuro: Denies any changes to sight / smell / hearing / taste, seizures, fits, headaches, paresthesias and or anesthesias Psychiatric: Positive for history of depression and anxiety but denies any paranoia anhedonia or episodes of pily. Endocrine: Positive for history of hypothyroidism, denies any new or increased appetite, tremor, palpitations, constipation or dry skin. Denies polydypsia, polyuria or polyphagia. Hematologic: Denies easy bruising or bleeding, denies anemia, purpura or petechiae. Lymphatic: Denies any new lumps or bumps anywhere. PHYSICAL EXAMINATION: Temperature: 97.8, pulse 75 and regular, respiratory rate 18 and unlabored, blood pressure 127/60, 127/60, pulse oximetry was 90% her sorry 97% on room air. General: female who looks older than stated age in no acute distress lying in the stretcher. She is pleasant and cooperative. HEENT: Atraumatic, normocephalic. Mucous membranes are dry. Pupils are equal, round and reactive to light and extraocular eye movements are intact. She does have surgical changes to the lower part of her face and into her neck. May she has her own teeth and dentition is somewhat poor. Posterior pharynx does have some petechiae but there is no overt erythema or exudate seen. Neck: Postsurgical and radiation changes noted, no masses are appreciated, overlying skin is healing with her radiation treatments. New skin growth is appreciated. No neck stiffness is noted. Chest: [id number] in the right upper chest without surrounding erythema or drainage. Lungs are clear to auscultation bilaterally, no wheezes, rhonchi or rales. Heart: Regular rate and rhythm. No murmurs, gallops or rubs. Back: No CVA tenderness. Abdomen: PEG tube in the left upper quadrant without any irritation of the skin, erythema or drainage. Normoactive bowel sounds are appreciated, nontender, nondistended. No organomegaly. No tenderness to palpation. Extremities: No clubbing, cyanosis or bilateral lower extremity edema is noted. Pulses are 2+ throughout. Capillary refill is somewhat delayed at about 3-4 seconds. Neuro: Cranial nerves II-XII grossly intact. Sensation intact throughout. Muscle strength is 5/5 in all four extremities. New LABORATORY DATA: CBC: WBC 2.8, hemoglobin 9.6, hematocrit 29.7, platelets are 258, neutrophils 57% bands 15% lymphocytes 9%. Absolute neutrophil count is calculated at 420. Chemistries: Sodium 134, potassium 4.8, chloride 98, carbon dioxide 25, BUN 46, creatinine 2.10 with a calculated GFR of 25, glucose 92, calcium 9.0, total bilirubin 0.6, direct bilirubin 0.3, AST 24, ALT 22, alkaline phosphatase 80, total protein 6.7, albumin 3.01. IMAGING STUDIES: Chest x-ray Done 07/31/2019 shows the airway is midline. Bony structures are intact. Cardiac silhouette is not enlarged. Diaphragms are clear and crisp. EKG leads are in place and an Inbqiw-P-[id number] is in the right upper chest with the line terminating in the superior vena cava. Lung noguera are clear with no focal areas of consolidation. ASSESSMENT/PLAN: This is a 68-year-old female with stage [id number] left-sided tongue carcinoma status post left hemiglossectomy modified radical left neck dissection with high-risk features including lymphovascular and perineural invasion with positive lymph nodes an extra meme extension, status post chemo and radiation who is being admitted for excessive secretions and dehydration secondary to the inability to keep her tube feedings down. This is multifactorial in nature. PLAN: 1. Dehydration. Will we hold tube feedings at the moment. Continue normal saline at 100 cc/hour. 2. Feeding intolerance. Halting tube feeds tonight. Should get a dietary consultation in the morning. Feeding intolerance is also probably secondary to her excessive secretions for which she will be getting a scopolamine patch if she is unable to continue tolerating her tube feeds may consider TPN as an option. 3. Left-sided tongue carcinoma stage IVB. She is status post left hemiglossectomy modified radical left neck dissection with high-risk features including lymphovascular and perineural invasion trauma extranodal extension, status post chemo and radiation. She continues with chemotherapy outpatient and was supposed to get chemotherapy today but did not due to her nausea and presenting to the emergency department. She will be on chemo precautions. 4. Nausea secondary to chemo and radiation. Continue with her home nausea medications: Olanzapine, Zofran and prochlorperazine. 5. Status post radiation to the neck, continue with the Silvadene 6. Hypertension. Continue with home amlodipine. Continue with home spironolactone. 7. Hyperlipidemia. Continue with home pravastatin. 8. Depression. Continue with home trazodone, home sertraline, quetiapine, and gabapentin. Continue with home aripiprazole 9. Hypothyroidism. Continue with home Synthroid. 10. Neutropenia, secondary to chemotherapy. Absolute neutrophil count is 420. The patient is on chemo precautions. No likely signs of infection at this point. We will continue to monitor. DISPOSITION: Admit to inpatient as we expect more than two midnights . My faculty preceptor for this patient encounter was physically present during the encounter and was fully available. All aspects of the patient interview, examination, medical decision making process, and medical care plan development were reviewed and approved by the faculty preceptor. The faculty preceptor is aware and concurs with the plan as stated in the body of this note and will attest to such by his/her cosignature.
[2019-08-01 09:07] LABS: CALCIUM LEVEL 7.9 MG/DL (8.8-10.2); CREATININE FOR GFR 1.57 MG/DL (0.55-1.30); POTASSIUM SERUM 4.6 MEQ/L (3.5-5.1)
[2019-08-01] MEDS: HEPARIN SOD (PORCINE) 5000 UNITS/ML VIAL (J1644 PER 1000UNITS) SC SCH ×2 (09:31→20:58)
[2019-08-01] MEDS: SERTRALINE 100 MG TAB PO SCH (09:33)
[2019-08-01] MEDS: SPIRONOLACTONE 50 MG TAB PO SCH (09:34)
[2019-08-01] MEDS: LEVOTHYROXINE 88MCG TABLET (0.088 MG) PO SCH (09:34)
[2019-08-01] MEDS: amLODIPine 10 MG TAB PO SCH (09:36)
[2019-08-01 14:00] VITALS: BP 116/69
[2019-08-01] MEDS: D5W/0.45% SODIUM CHLORIDE 1,000 ML IV SCH (16:21)
--- NOTE | 2019-08-01 18:43 | IPNPDOC ---
Text Note Date of Service The patient was seen on 08/01/19. NOTE H+P reviewed. Maintain neutropenic precautions. NPO status. swallow eval shows aspiration. Modified barium swallow study in am. VS,Yousifbone, I+O VS, Yousifbone, I+O Laboratory Tests 08/01/19 08:16 Vital Signs Date Time Temp Pulse Resp B/P (MAP) Pulse Ox O2 Delivery O2 Flow Rate FiO2 08/01/19 14:00 97.6 80 18 116/69 (85) 95 Room Air I&O- Last 24 Hours up to 6 AM 08/01/19 06:00 Intake Total 1250 ml Output Total 0 ml Balance 1250 ml TASHI CHAPARRO MD Aug 01, 2019 18:42
[2019-08-01 22:00] VITALS: BP 113/55
[2019-08-02] MEDS: D5W/0.45% SODIUM CHLORIDE 1,000 ML IV SCH ×3 (02:07→20:12)
[2019-08-02 06:00] VITALS: BP 99/48
[2019-08-02 06:26] LABS: HEMATOCRIT 24.8 % (36.0-47.0); HEMOGLOBIN 8.2 g/dl (12.0-15.5); MEAN CORPUSCULAR HEMOGLOBIN 30.8 pg (27.0-33.0); MEAN CORPUSCULAR HGB CONC 33.1 g/dl (32.0-36.5); MEAN CORPUSCULAR VOLUME 93.2 fl (80.0-96.0); PLATELET COUNT, AUTOMATED 225 10^3/uL (150-450); RED BLOOD COUNT 2.66 10^6/uL (4.00-5.40); WHITE BLOOD COUNT 2.6 10^3/uL (4.0-10.0)
[2019-08-02 06:39] LABS: CALCIUM LEVEL 8.9 MG/DL (8.8-10.2); CREATININE FOR GFR 1.33 MG/DL (0.55-1.30); GLOMERULAR FILTRATION RATE 42.4 (>45); POTASSIUM SERUM 4.4 MEQ/L (3.5-5.1)
[2019-08-02 06:57] LABS: ATYPICAL LYMPH 2 % (0-5); EOSINOPHILS 4 % (0-3); LYMPHOCYTES 8 % (16-44); MONOCYTES 14 % (0-5); MYELOCYTES 1 % (0-0); NEUTROPHILS 64 % (28-66)
[2019-08-02 06:58] LABS: PLATELET ESTIMATE NORMAL (NORMAL); POLYCHROMASIA 1+
[2019-08-02 07:00] LABS: POIKILOCYTOSIS 1+
[2019-08-02 07:01] LABS: ANISOCYTOSIS 1+
[2019-08-02] MEDS ORDERED: PREVNAR 13 VACCINE SYRINGE (CPT CODE:90670) IM ONE (09:00)
[2019-08-02] MEDS ORDERED: VARIBAR PUDDING 40% w/v 230ML TUBE As Ordered ONE (09:23)
[2019-08-02] MEDS ORDERED: E-Z-PAQUE 96% w/w SUSP 176GM BTL As Ordered ONE (09:24)
[2019-08-02] MEDS ORDERED: BARIUM SULFATE 700 MG TABLET (E-Z-DISK) As Ordered ONE (09:24)
[2019-08-02] MEDS ORDERED: VARIBAR NECTAR 40% w/v 240ML SUSP BTL As Ordered ONE (09:24)
[2019-08-02] MEDS: ARIPiprazole 10 MG TAB PO SCH ×2 (10:44→20:12)
[2019-08-02] MEDS: HEPARIN SOD (PORCINE) 5000 UNITS/ML VIAL (J1644 PER 1000UNITS) SC SCH ×2 (10:44→20:12)
[2019-08-02] MEDS: SPIRONOLACTONE 50 MG TAB PO SCH (10:47)
[2019-08-02] MEDS: amLODIPine 10 MG TAB PO SCH (10:47)
[2019-08-02] MEDS: SILVER SULFADIAZINE 1% CR 400 GM JAR EXT SCH ×3 (10:48→20:14)
[2019-08-02] MEDS: LEVOTHYROXINE 88MCG TABLET (0.088 MG) PO SCH (10:48)
[2019-08-02] MEDS: GABAPENTIN 300 MG CAP PO SCH ×3 (10:49→20:14)
[2019-08-02] MEDS: SERTRALINE 100 MG TAB PO SCH (10:49)
--- NOTE | 2019-08-02 12:24 | IPNPDOC ---
Subjective Date Seen The patient was seen on 08/02/19. Subjective Chief Complaint/HPI Luciana is ok this morning. The scopolamine patch is helping with her secretions, she's awaiting her modified barium swallow eval, TF will be started after speech therapy evals are complete. afebrile, no other complaints. Objective Physical Examination General Exam: Positive: Alert, Cooperative, No Acute Distress Eye Exam: Negative: Sclera icteric ENT Exam: Positive: Mucous membr. moist/pink Neck Exam: Positive: Supple, Other (Radiation dermatitis on anterior neck, no signs of secondary infection) Chest Exam: Positive: Clear to auscultation Abdomen Exam: Positive: Normal bowel sounds, Soft, Other (PEG insertion site looks clean w/o infection some mild redness, no skin breakdown); Negative: Tenderness Extremity Exam: Negative: Edema, Tenderness Skin Exam: Negative: Rash Neuro Exam: Positive: Normal Gait Psych Exam: Positive: Mental status NL Assessment /Plan Assessment # Dysphagia - ST following, modified barium swallow pending - npo status - TFs are held until final determination by ST # Acute dehydration with REJI - kidney function improving - continue IVFs, can stop once TFs started # Leukopenia - the patient does not have neutropenia, can discontinue neutropenic precautions # Stage IVb tongue cancer # NCNC anemia due to chemotherapy - will f/u as outpatient with oncology to resume chemo + radiation - monitor cbc Plan/VTE VTE Prophylaxis Ordered?: Yes (hep sq bid) VTE Exclusion Mechanical Proph: N/A:VTE Prophy Ordered VTE Exclusion Pharmacological: N/A:VTE Prophy Ordered VS, I&O, 24H, Fishbone Vital Signs/I&O Vital Signs Date Time Temp Pulse Resp B/P (MAP) Pulse Ox O2 Delivery O2 Flow Rate FiO2 08/02/19 10:47 65 112/50 08/02/19 06:00 98.1 18 98 Room Air I&O- Last 24 Hours up to 6 AM 08/02/19 06:00 Intake Total 360 ml Output Total 300 ml Balance 60 ml Laboratory Data 24H LABS Laboratory Tests 2 08/02/19 05:52: Immature Granulocyte % (Auto) , Lymphocytes # (Auto) , Nucleated Red Blood Cells % (auto) 0.0, Neutrophils 64, Band Neutrophils 7, Lymphocytes (Manual) 8L, Monocytes (Manual) 14H, Eosinophils (Manual) 4H, Myelocytes 1H, Atypical Lymphocytes 2, Polychromasia 1+, Poikilocytosis 1+, Anisocytosis 1+, Platelet Estimate NORMAL, Anion Gap 6L, Glomerular Filtration Rate 42.4L, Calcium Level 8.9 CBC/BMP Laboratory Tests 08/02/19 05:52 TASHI CHAPARRO MD Aug 02, 2019 12:24
[2019-08-02 14:00] VITALS: BP 127/57
--- NOTE | 2019-08-02 15:19 | REP ---
KERMITIE SWALLOW The procedure was performed under the direct supervision of Dr. Flores. The procedure was performed with Loly Roberts from speech pathology present. A 5 ml aliquots of nectar consistency barium was administered. There was aspiration. The detailed report of this examination will be provided by speech pathology. 0.2 minutes of fluoroscopy time was utilized for this procedure. Electronically Signed by CYNDIE Crowder 08/02/2019 03:06 P Electronically Signed by Froilan Flores MD 08/02/2019 03:11 P
[2019-08-02] MEDS: QUEtiapine FUMARATE 200 MG TAB PO SCH (20:12)
[2019-08-02] MEDS: LORazepam 1 MG TAB PO SCH (20:13)
[2019-08-02] MEDS: traZODone 50 MG TAB PO SCH (20:13)
[2019-08-02] MEDS: PRAVASTATIN 20 MG TAB PO SCH (20:13)
[2019-08-02 22:00] VITALS: BP 120/56
[2019-08-03 06:00] VITALS: BP 103/54
[2019-08-03 06:53] LABS: HEMATOCRIT 24.3 % (36.0-47.0); MEAN CORPUSCULAR HEMOGLOBIN 30.8 pg (27.0-33.0); MEAN CORPUSCULAR HGB CONC 32.9 g/dl (32.0-36.5); MEAN CORPUSCULAR VOLUME 93.5 fl (80.0-96.0); PLATELET COUNT, AUTOMATED 217 10^3/uL (150-450); WHITE BLOOD COUNT 2.9 10^3/uL (4.0-10.0)
[2019-08-03 07:13] LABS: CALCIUM LEVEL 8.7 MG/DL (8.8-10.2); CREATININE FOR GFR 1.26 MG/DL (0.55-1.30); POTASSIUM SERUM 4.4 MEQ/L (3.5-5.1)
[2019-08-03 07:20] LABS: EOSINOPHILS 4 % (0-3); LYMPHOCYTES 13 % (16-44); METAMYELOCYTES 3 % (0-0); MONOCYTES 16 % (0-5); MYELOCYTES 2 % (0-0); NEUTROPHILS 61 % (28-66)
[2019-08-03 07:21] LABS: ANISOCYTOSIS 1+; PLATELET ESTIMATE NORMAL (NORMAL)
[2019-08-03] MEDS: ARIPiprazole 10 MG TAB PO SCH ×2 (09:59→22:23)
[2019-08-03] MEDS: D5W/0.45% SODIUM CHLORIDE 1,000 ML IV SCH (09:59)
[2019-08-03] MEDS: GABAPENTIN 300 MG CAP PO SCH ×3 (09:59→22:23)
[2019-08-03] MEDS: SERTRALINE 100 MG TAB PO SCH (10:00)
[2019-08-03] MEDS: LEVOTHYROXINE 88MCG TABLET (0.088 MG) PO SCH (10:00)
[2019-08-03] MEDS: SPIRONOLACTONE 50 MG TAB PO SCH (10:02)
[2019-08-03] MEDS: SILVER SULFADIAZINE 1% CR 400 GM JAR EXT SCH ×3 (10:02→22:24)
[2019-08-03] MEDS: HEPARIN SOD (PORCINE) 5000 UNITS/ML VIAL (J1644 PER 1000UNITS) SC SCH ×2 (10:02→22:24)
[2019-08-03] MEDS: amLODIPine 10 MG TAB PO SCH (10:02)
[2019-08-03 14:00] VITALS: BP 105/56
--- NOTE | 2019-08-03 14:12 | IPNPDOC ---
Subjective Date Seen The patient was seen on 08/03/19. Subjective Chief Complaint/HPI Luciana is resting in bed. She was up to the bathroom w/o complaint weakness. Afebrile. The scopolamine is helping some with her secretions. Objective Physical Examination General Exam: Positive: Alert, No Acute Distress Eye Exam: Negative: Sclera icteric ENT Exam: Positive: Mucous membr. moist/pink Neck Exam: Positive: Supple, Other (Radiation dermatitis on anterior neck, no signs of secondary infection) Chest Exam: Positive: Clear to auscultation Abdomen Exam: Positive: Normal bowel sounds, Soft, Other (PEG insertion site looks clean w/o infection some mild redness, no skin breakdown); Negative: Tenderness Extremity Exam: Negative: Edema, Tenderness Skin Exam: Negative: Rash Neuro Exam: Positive: Normal Gait, Strength at 5/5 X4 ext, Normal Tone Psych Exam: Positive: Mental status NL Assessment /Plan Assessment # Dysphagia - ST following, modified barium swallow shows aspiration - npo status - start continuous TF: Jevity 1.5 with goal rate 65 ml/hr with 200 ml water flushes q4 # Oral Secretions - scopolamine in place, but should switch to oral glycopyrrolate at discharge to minimize anticholinergic side-effects # Acute dehydration with REJI - kidney function improving - discontinue IVFs # Leukopenia - the patient does not have neutropenia, can discontinue neutropenic precautions # Stage IVb tongue cancer # NCNC anemia due to chemotherapy - will f/u as outpatient with oncology to resume chemo + radiation - monitor cbc Plan/VTE VTE Prophylaxis Ordered?: Yes (hep sq bid) VTE Exclusion Mechanical Proph: N/A:VTE Prophy Ordered VTE Exclusion Pharmacological: N/A:VTE Prophy Ordered VS, I&O, 24H, Fishbone Vital Signs/I&O Vital Signs Date Time Temp Pulse Resp B/P (MAP) Pulse Ox O2 Delivery O2 Flow Rate FiO2 08/03/19 10:02 67 119/57 08/03/19 06:00 97.4 17 97 Room Air I&O- Last 24 Hours up to 6 AM 08/03/19 06:00 Intake Total 1260 ml Balance 1260 ml Laboratory Data 24H LABS Laboratory Tests 2 08/03/19 06:14: Immature Granulocyte % (Auto) , Nucleated Red Blood Cells % (auto) 0.0, Neutrophils 61, Band Neutrophils 1, Lymphocytes (Manual) 13L, Monocytes (Manual) 16H, Eosinophils (Manual) 4H, Metamyelocytes 3H, Myelocytes 2H, Anisocytosis 1+, Platelet Estimate NORMAL, Anion Gap 6L, Glomerular Filtration Rate 45.0, Calcium Level 8.7L CBC/BMP Laboratory Tests 08/03/19 06:14 TASHI CHAPARRO MD Aug 03, 2019 14:12
[2019-08-03 22:00] VITALS: BP_SYST 111; BP_SYST 136; BP_DIAS 66; BP_DIAS 72
[2019-08-03] MEDS: traZODone 50 MG TAB PO SCH (22:23)
[2019-08-03] MEDS: PRAVASTATIN 20 MG TAB PO SCH (22:23)
[2019-08-03] MEDS: QUEtiapine FUMARATE 200 MG TAB PO SCH (22:23)
[2019-08-03] MEDS: LORazepam 1 MG TAB PO SCH (22:23)
[2019-08-03] MEDS: SCOPOLAMINE 1MG TRANSDERMAL PATCH TOP SCH (22:24)
[2019-08-04 06:00] VITALS: BP 106/54
[2019-08-04 07:08] LABS: HEMATOCRIT 28.6 % (36.0-47.0); HEMOGLOBIN 9.4 g/dl (12.0-15.5); MEAN CORPUSCULAR HEMOGLOBIN 30.9 pg (27.0-33.0); MEAN CORPUSCULAR HGB CONC 32.9 g/dl (32.0-36.5); MEAN CORPUSCULAR VOLUME 94.1 fl (80.0-96.0); PLATELET COUNT, AUTOMATED 281 10^3/uL (150-450); RED BLOOD COUNT 3.04 10^6/uL (4.00-5.40)
[2019-08-04 07:31] LABS: CALCIUM LEVEL 9.6 MG/DL (8.8-10.2); CREATININE FOR GFR 1.25 MG/DL (0.55-1.30); GLOMERULAR FILTRATION RATE 45.4 (>45); POTASSIUM SERUM 4.2 MEQ/L (3.5-5.1)
[2019-08-04 07:34] LABS: ANISOCYTOSIS 1+; BASOPHILS 2 % (0-1); EOSINOPHILS 4 % (0-3); LYMPHOCYTES 7 % (16-44); METAMYELOCYTES 2 % (0-0); MONOCYTES 13 % (0-5); NEUTROPHILS 71 % (28-66); PLATELET ESTIMATE NORMAL (NORMAL)
[2019-08-04] MEDS: amLODIPine 10 MG TAB PO SCH (09:00)
[2019-08-04] MEDS: LEVOTHYROXINE 88MCG TABLET (0.088 MG) PO SCH (09:50)
[2019-08-04] MEDS: HEPARIN SOD (PORCINE) 5000 UNITS/ML VIAL (J1644 PER 1000UNITS) SC SCH ×2 (09:50→21:01)
[2019-08-04] MEDS: ARIPiprazole 10 MG TAB PO SCH ×2 (09:51→21:00)
[2019-08-04] MEDS: SERTRALINE 100 MG TAB PO SCH (09:52)
[2019-08-04] MEDS: SPIRONOLACTONE 50 MG TAB PO SCH (09:55)
[2019-08-04] MEDS: GABAPENTIN 300 MG CAP PO SCH ×3 (09:55→21:01)
[2019-08-04] MEDS: SILVER SULFADIAZINE 1% CR 400 GM JAR EXT SCH ×3 (09:56→21:01)
[2019-08-04] MEDS ORDERED: SODIUM CHLORIDE 0.9% INJ 10 ML SYR IV PRN (10:15)
--- NOTE | 2019-08-04 12:46 | IPNPDOC ---
Subjective Date Seen The patient was seen on 08/04/19. Subjective Chief Complaint/HPI Luciana is tolerating TFs. She denies any nausea nor vomiting. Objective Physical Examination General Exam: Positive: Alert, No Acute Distress Eye Exam: Negative: Sclera icteric ENT Exam: Positive: Mucous membr. moist/pink Neck Exam: Positive: Supple, Other (Radiation dermatitis on anterior neck, no signs of secondary infection) Chest Exam: Positive: Clear to auscultation Abdomen Exam: Positive: Normal bowel sounds, Soft, Other (PEG insertion site looks clean w/o infection some mild redness, no skin breakdown); Negative: Tenderness Extremity Exam: Negative: Edema, Tenderness Skin Exam: Negative: Rash Psych Exam: Positive: Mental status NL, Mood NL Assessment /Plan Assessment # Dysphagia - ST following, modified barium swallow shows aspiration - npo status - Jevity 1.5 with goal rate 65 ml/hr with 200 ml water flushes q4 - it intolerant to TF or develops n/v may need to have GJ tube placed # Oral Secretions - scopolamine in place, but should switch to oral glycopyrrolate at discharge to minimize anticholinergic side-effects # Acute dehydration with REJI - kidney function improving - discontinue IVFs # Leukopenia resolved - the patient never had neutropenia, can discontinue neutropenic precautions # Stage IVb tongue cancer # NCNC anemia due to chemotherapy - will f/u as outpatient with oncology to resume chemo + radiation - monitor cbc Plan/VTE VTE Prophylaxis Ordered?: Yes (hep sq bid) VTE Exclusion Mechanical Proph: N/A:VTE Prophy Ordered VTE Exclusion Pharmacological: N/A:VTE Prophy Ordered VS, I&O, 24H, Fishbone Vital Signs/I&O Vital Signs Date Time Temp Pulse Resp B/P (MAP) Pulse Ox O2 Delivery O2 Flow Rate FiO2 08/04/19 09:00 71 112/58 08/04/19 06:00 98.1 17 99 Room Air I&O- Last 24 Hours up to 6 AM 08/04/19 06:00 Intake Total 0 ml Output Total 600 ml Balance -600 ml Laboratory Data 24H LABS Laboratory Tests 2 08/04/19 06:19: Immature Granulocyte % (Auto) , Nucleated Red Blood Cells % (auto) 0.0, Neutrophils 71H, Band Neutrophils 1, Lymphocytes (Manual) 7L, Monocytes (Manual) 13H, Eosinophils (Manual) 4H, Basophils (Manual) 2H, Metamyelocytes 2H, Anisocytosis 1+, Platelet Estimate NORMAL, Anion Gap 4L, Glomerular Filtration Rate 45.4, Calcium Level 9.6 CBC/BMP Laboratory Tests 08/04/19 06:19 TASHI CHAPARRO MD Aug 04, 2019 12:46
[2019-08-04 14:00] VITALS: BP 107/64
[2019-08-04] MEDS: LORazepam 1 MG TAB PO SCH (21:00)
[2019-08-04] MEDS: PRAVASTATIN 20 MG TAB PO SCH (21:01)
[2019-08-04] MEDS: ATROPINE SULFATE 1% OP SOLN 2 ML BTL SL PRN (21:01)
[2019-08-04] MEDS: QUEtiapine FUMARATE 200 MG TAB PO SCH (21:01)
[2019-08-04] MEDS: traZODone 50 MG TAB PO SCH (21:01)
[2019-08-04 22:00] VITALS: BP 110/62
[2019-08-05] MEDS: ATROPINE SULFATE 1% OP SOLN 2 ML BTL SL PRN ×2 (02:25→06:25)
[2019-08-05 06:00] VITALS: BP 115/60
[2019-08-05 06:58] LABS: HEMATOCRIT 27.1 % (36.0-47.0); HEMOGLOBIN 8.9 g/dl (12.0-15.5); MEAN CORPUSCULAR HEMOGLOBIN 30.6 pg (27.0-33.0); MEAN CORPUSCULAR HGB CONC 32.8 g/dl (32.0-36.5); MEAN CORPUSCULAR VOLUME 93.1 fl (80.0-96.0); PLATELET COUNT, AUTOMATED 259 10^3/uL (150-450); RED BLOOD COUNT 2.91 10^6/uL (4.00-5.40); WHITE BLOOD COUNT 3.8 10^3/uL (4.0-10.0)
[2019-08-05 07:26] LABS: BASOPHILS 1 % (0-1); LYMPHOCYTES 17 % (16-44); MONOCYTES 3 % (0-5); NEUTROPHILS 79 % (28-66); PLATELET ESTIMATE NORMAL (NORMAL)
[2019-08-05] MEDS: SERTRALINE 100 MG TAB PO SCH (08:54)
[2019-08-05] MEDS: LEVOTHYROXINE 88MCG TABLET (0.088 MG) PO SCH (08:54)
[2019-08-05] MEDS: GABAPENTIN 300 MG CAP PO SCH ×3 (08:54→21:41)
[2019-08-05] MEDS: SPIRONOLACTONE 50 MG TAB PO SCH (08:55)
[2019-08-05] MEDS: amLODIPine 10 MG TAB PO SCH (08:55)
[2019-08-05] MEDS: ARIPiprazole 10 MG TAB PO SCH (08:55)
[2019-08-05] MEDS: HEPARIN SOD (PORCINE) 5000 UNITS/ML VIAL (J1644 PER 1000UNITS) SC SCH ×2 (08:56→21:41)
[2019-08-05] MEDS: SILVER SULFADIAZINE 1% CR 400 GM JAR EXT SCH ×3 (08:57→21:43)
[2019-08-05] MEDS: SODIUM CHLORIDE 0.9% INJ 10 ML SYR IV SCH (08:57)
[2019-08-05 14:00] VITALS: BP 114/73
--- NOTE | 2019-08-05 15:32 | IPNPDOC ---
Subjective Date Seen The patient was seen on 08/05/19. Subjective Chief Complaint/HPI has tolerated TFs x 24, no n/v. secretions treated with atropine + scopolamine while hospitalized. Moving around ok. Objective Physical Examination General Exam: Positive: Alert, Cooperative Eye Exam: Positive: EOMI; Negative: Sclera icteric ENT Exam: Positive: Mucous membr. moist/pink, Pharynx Normal Neck Exam: Positive: Supple, Other (Radiation dermatitis on anterior neck, no signs of secondary infection) Chest Exam: Positive: Clear to auscultation Heart Exam: Positive: Rate Normal Abdomen Exam: Positive: Normal bowel sounds, Soft, Other (PEG insertion site looks clean w/o infection some mild redness, no skin breakdown); Negative: Tenderness Extremity Exam: Negative: Edema, Tenderness Skin Exam: Negative: Rash Psych Exam: Positive: Mental status NL, Mood NL Assessment /Plan Assessment # Dysphagia - ST following, modified barium swallow shows aspiration - npo status - Jevity 1.5 with goal rate 65 ml/hr with 200 ml water flushes q4, plan is to s witch back to bolus feeding at discharge - it intolerant to TF or develops n/v may need to have GJ tube placed - can be discharged home in am if continues to tolerate TFs # Oral Secretions - scopolamine and atropine drops ordered, but should switch to oral glycopyrrolate via peg at discharge to minimize anticholinergic side-effects # Acute dehydration with REJI - kidney function back to normal - discontinue IVFs # Leukopenia resolved - the patient never had neutropenia, can discontinue neutropenic precautions # Stage IVb tongue cancer # NCNC anemia due to chemotherapy - will f/u as outpatient with oncology to resume chemo + radiation - monitor cbc Plan/VTE VTE Prophylaxis Ordered?: Yes (hep sq bid) VTE Exclusion Mechanical Proph: N/A:VTE Prophy Ordered VTE Exclusion Pharmacological: N/A:VTE Prophy Ordered VS, I&O, 24H, Fishbone Vital Signs/I&O Vital Signs Date Time Temp Pulse Resp B/P (MAP) Pulse Ox O2 Delivery O2 Flow Rate FiO2 08/05/19 14:00 98.1 91 17 114/73 (87) 98 Room Air I&O- Last 24 Hours up to 6 AM 08/05/19 06:00 Intake Total 3244 ml Output Total 1300 ml Balance 1944 ml Laboratory Data 24H LABS Laboratory Tests 2 08/05/19 06:16: Immature Granulocyte % (Auto) , Neutrophils (%) (Auto) , Nucleated Red Blood Cells % (auto) 0.0, Neutrophils 79H, Lymphocytes (Manual) 17, Monocytes (Manual) 3, Basophils (Manual) 1, Red Blood Cell Morphology NORMAL, Platelet Estimate NORMAL CBC/BMP Laboratory Tests 08/05/19 06:16 TASHI CHAPARRO MD Aug 05, 2019 15:32
[2019-08-05] MEDS: ARIPiprazole 15 MG TAB (AbiLIFY) PO SCH (21:41)
[2019-08-05] MEDS: traZODone 50 MG TAB PO SCH (21:41)
[2019-08-05] MEDS: PRAVASTATIN 20 MG TAB PO SCH (21:42)
[2019-08-05] MEDS: QUEtiapine FUMARATE 200 MG TAB PO SCH (21:42)
[2019-08-05] MEDS: LORazepam 1 MG TAB PO SCH (21:42)
[2019-08-05 22:00] VITALS: BP 124/60
[2019-08-06 06:00] VITALS: BP 118/58
[2019-08-06 06:20] LABS: HEMATOCRIT 28.2 % (36.0-47.0); HEMOGLOBIN 9.1 g/dl (12.0-15.5); MEAN CORPUSCULAR HEMOGLOBIN 30.5 pg (27.0-33.0); MEAN CORPUSCULAR HGB CONC 32.3 g/dl (32.0-36.5); MEAN CORPUSCULAR VOLUME 94.6 fl (80.0-96.0); PLATELET COUNT, AUTOMATED 275 10^3/uL (150-450); RED BLOOD COUNT 2.98 10^6/uL (4.00-5.40); WHITE BLOOD COUNT 3.6 10^3/uL (4.0-10.0)
[2019-08-06 06:45] LABS: BASOPHILS 2 % (0-1); EOSINOPHILS 1 % (0-3); LYMPHOCYTES 27 % (16-44); METAMYELOCYTES 4 % (0-0); MONOCYTES 4 % (0-5); MYELOCYTES 1 % (0-0); NEUTROPHILS 61 % (28-66); PLATELET ESTIMATE NORMAL (NORMAL)
[2019-08-06] MEDS: amLODIPine 10 MG TAB PO SCH (08:44)
[2019-08-06] MEDS: SPIRONOLACTONE 50 MG TAB PO SCH (08:44)
[2019-08-06] MEDS: HEPARIN SOD (PORCINE) 5000 UNITS/ML VIAL (J1644 PER 1000UNITS) SC SCH ×2 (09:00→21:07)
[2019-08-06] MEDS: ARIPiprazole 15 MG TAB (AbiLIFY) PO SCH ×2 (09:01→21:06)
[2019-08-06] MEDS: GABAPENTIN 300 MG CAP PO SCH ×3 (09:01→21:07)
[2019-08-06] MEDS: SILVER SULFADIAZINE 1% CR 400 GM JAR EXT SCH ×3 (09:01→21:07)
[2019-08-06] MEDS: SERTRALINE 100 MG TAB PO SCH (09:01)
[2019-08-06] MEDS: LEVOTHYROXINE 88MCG TABLET (0.088 MG) PO SCH (09:01)
[2019-08-06] MEDS: SODIUM CHLORIDE 0.9% INJ 10 ML SYR IV SCH (09:01)
[2019-08-06 14:00] VITALS: BP 115/54
[2019-08-06] MEDS: LORazepam 1 MG TAB PO SCH (21:06)
[2019-08-06] MEDS: QUEtiapine FUMARATE 200 MG TAB PO SCH (21:07)
[2019-08-06] MEDS: PRAVASTATIN 20 MG TAB PO SCH (21:07)
[2019-08-06] MEDS: traZODone 50 MG TAB PO SCH (21:07)
[2019-08-06] MEDS: SCOPOLAMINE 1MG TRANSDERMAL PATCH TOP SCH (21:08)
[2019-08-06] MEDS: ATROPINE SULFATE 1% OP SOLN 2 ML BTL SL PRN (21:30)
[2019-08-06 22:00] VITALS: BP 120/61
--- NOTE | 2019-08-06 22:00 | IPNPDOC ---
Subjective Date Seen The patient was seen on 08/06/19. Subjective Chief Complaint/HPI Patient is in a good mood today. She does understand and knows how to give herself a bolus tube feeds, she is hopeful that she will be able to tolerate them. She does continue to have some secretions, but has not had any episodes of coughing, nausea, or vomiting today. General: Denies: Chills, Night Sweats, Fatigue, Malaise Constitutional: Denies: Chills, Fever, Night Sweats Eyes: Denies: Pain, Vision change Pulmonary: Denies: Dyspnea, Cough Cardiovascular: Denies: Chest Pain, Palpitations, Orthopnea, Paroxysmal Noc. Dyspnea, Lt Headedness Gastrointestinal: Denies: Nausea, Vomiting, Abdominal Pain, Diarrhea, Constipation Psych: Reports: Mood Normal; Denies: Depression, Memory Issues Objective Physical Examination General Exam: Positive: Alert, Cooperative, No Acute Distress Eye Exam: Positive: EOMI; Negative: Sclera icteric ENT Exam: Positive: Mucous membr. moist/pink, Pharynx Normal Neck Exam: Positive: Supple, Other (Radiation dermatitis on anterior neck, no signs of secondary infection); Negative: JVD Chest Exam: Positive: Clear to auscultation, Normal air movement; Negative: Rales, Rhonchi Heart Exam: Positive: Rate Normal Abdomen Exam: Positive: Normal bowel sounds, Soft, Other (PEG insertion site looks clean w/o infection some mild redness, no skin breakdown); Negative: Tenderness Extremity Exam: Negative: Edema, Tenderness Skin Exam: Negative: Rash Psych Exam: Positive: Mental status NL, Mood NL Assessment /Plan Plan/VTE VTE Prophylaxis Ordered?: Yes (hep sq bid) VTE Exclusion Mechanical Proph: N/A:VTE Prophy Ordered VTE Exclusion Pharmacological: N/A:VTE Prophy Ordered Plan # Dysphagia - ST following, modified barium swallow showed aspiration - npo status - Switched back to bolus feeding today, if intolerant of bolus feeding, may need a pump ordered prior to discharge, or last resort would be to have GJ tube placed - can be discharged home in am if continues to tolerate TFs # Oral Secretions - scopolamine and atropine drops ordered, but should switch to oral glycopyrrolate via peg at discharge to minimize anticholinergic side-effects # Acute dehydration with REJI - Resolved # Leukopenia - Resolved # Stage IVb tongue cancer # NCNC anemia due to chemotherapy - will f/u as outpatient with oncology to resume chemo + radiation VS, I&O, 24H, Fishbone Vital Signs/I&O Vital Signs Date Time Temp Pulse Resp B/P (MAP) Pulse Ox O2 Delivery O2 Flow Rate FiO2 08/06/19 14:00 98.6 60 17 115/54 (74) 98 08/05/19 14:00 Room Air I&O- Last 24 Hours up to 6 AM 08/06/19 06:00 Intake Total 0 ml Output Total 1150 ml Balance -1150 ml Laboratory Data 24H LABS Laboratory Tests 2 08/06/19 05:43: Immature Granulocyte % (Auto) , Neutrophils (%) (Auto) , Nucleated Red Blood Cells % (auto) 0.6H, Neutrophils 61, Lymphocytes (Manual) 27, Monocytes (Manual) 4, Eosinophils (Manual) 1, Basophils (Manual) 2H, Metamyelocytes 4H, Myelocytes 1H, Red Blood Cell Morphology NORMAL, Platelet Estimate NORMAL CBC/BMP Laboratory Tests 08/06/19 05:43 ELSA CARR DO Aug 06, 2019 22:00
[2019-08-07 06:00] VITALS: BP 114/54
[2019-08-07 09:00] VITALS: BP 113/52
[2019-08-07] MEDS: amLODIPine 10 MG TAB PO SCH (09:00)
[2019-08-07] MEDS: SPIRONOLACTONE 50 MG TAB PO SCH (10:09)
[2019-08-07] MEDS: GABAPENTIN 300 MG CAP PO SCH ×2 (10:11→16:08)
[2019-08-07] MEDS: SERTRALINE 100 MG TAB PO SCH (10:11)
[2019-08-07] MEDS: HEPARIN SOD (PORCINE) 5000 UNITS/ML VIAL (J1644 PER 1000UNITS) SC SCH (10:11)
[2019-08-07] MEDS: LEVOTHYROXINE 88MCG TABLET (0.088 MG) PO SCH (10:11)
[2019-08-07] MEDS: ARIPiprazole 15 MG TAB (AbiLIFY) PO SCH (10:12)
[2019-08-07] MEDS: SILVER SULFADIAZINE 1% CR 400 GM JAR EXT SCH ×2 (10:13→16:08)
[2019-08-07] MEDS: SODIUM CHLORIDE 0.9% INJ 10 ML SYR IV SCH (10:13)
[2019-08-07 14:00] VITALS: BP 152/59
[2019-08-07] MEDS ORDERED: ATRO1OPD SL (17:21)
[2019-08-07] MEDS ORDERED: SCOP1PAT2 TOP (17:21)
--- NOTE | 2019-08-07 19:19 | DS.PDOC ---
Discharge Summary General Date of Admission Aug 01, 2019 at 01:06 Date of Discharge 08/07/19 Attending Physician: BERLIN REYES MD Discharge Summary PROCEDURES PERFORMED DURING STAY: None. ADMITTING DIAGNOSES: 1. Acute kidney injury, dehydration. DISCHARGE DIAGNOSES: 1. Acute kidney injury, dehydration. COMPLICATIONS/CHIEF COMPLAINT: Dehydration, Feeding Intolerence. HISTORY OF PRESENT ILLNESS: 69-year-old female with past medical history of squamous cell cancer of the tongue status post radiation and PEG tube placement was admitted for acute kidney injury and dehydration. Patient was unable to tolerate bolus feeding and would develop subsequent vomiting leading to decreased intake and kidney injury. Patient was IV fluids, initially tube feeds were continuous, which have now been transitioned back to bolus feeds which patient uses at home. Patient has tolerated bolus feeds for the past 24 hours without vomiting anything up, seen the morning, comfortable, clinically, and hemodynamic stable for discharge and outpatient follow-up. HOSPITAL COURSE: As above. DISCHARGE MEDICATIONS: Please see below. ALLERGIES: Please see below. PHYSICAL EXAMINATION: VITAL SIGNS: Please see below. GENERAL: No distress HEENT: Normocephalic, atraumatic, moist mucous membranes NECK: Supple CARDIOVASCULAR EXAMINATION: S1, S2, no murmurs RESPIRATORY EXAMINATION: Clear to auscultation, no wheezing ABDOMINAL EXAMINATION: Soft, nontender, nondistended, positive bowel sounds, PEG tube in place EXTREMITIES: Range of motion intact SKIN: No rash NEUROLOGICAL EXAMINATION: no focal deficits PSYCHIATRIC EXAMINATION: Calm and cooperative LABORATORY DATA: Please see below. PROGNOSIS: Fair ACTIVITY: As tolerated. DIET: Nothing by mouth, tube feeding DISCHARGE PLAN: Follow with PCP in 1-2 weeks DISPOSITION: 01 Home, Self-Care. DISCHARGE INSTRUCTIONS: 1. As above. ITEMS TO FOLLOWUP ON ON OUTPATIENT: 1. . DISCHARGE CONDITION: Stable. TIME SPENT ON DISCHARGE: Greater than 34 minutes. Vital Signs/I&Os Vital Signs Date Time Temp Pulse Resp B/P (MAP) Pulse Ox O2 Delivery O2 Flow Rate FiO2 08/07/19 14:00 99.1 76 16 152/59 (90) 97 Room Air I&O- Last 24 Hours up to 6 AM 08/07/19 06:00 Intake Total 1830 ml Output Total 0 ml Balance 1830 ml Discharge Medications Scheduled Amlodipine Besylate (Amlodipine Besylate) 10 Mg Tablet, 5 MG PO DAILY, (Reported) Aripiprazole (Aripiprazole) 30 Mg Tablet, 15 MG PO DAILY, (Reported) Gabapentin (Gabapentin) 300 Mg Capsule, 300 MG PO TID, (Reported) Levothyroxine Sodium (Synthroid) 88 Mcg Tablet, 88 MCG PO DAILY, (Reported) Lorazepam (Lorazepam) 1 Mg Tablet, 1.5 MG PO QHS, (Reported) Pravastatin Sodium (Pravastatin Sodium) 40 Mg Tablet, 20 MG PO QHS, (Reported) Quetiapine Fumarate (Quetiapine Fumarate) 400 Mg Tablet, 400 MG PO QHS, (Reported) Scopolamine (Transderm-Scop) 1 Each Patch.td.3, 1 MG TOP Q72H Sertraline HCl (Sertraline HCl) 100 Mg Tablet, 150 MG PO DAILY, (Reported) Silver Sulfadiazine (Silvadene) 400 Gm Cream..g., 400 GRAMS EXT TID for Apply to skin of neck Spironolactone (Spironolactone) 100 Mg Tablet, 400 MG PO DAILY, (Reported) Trazodone HCl (Trazodone HCl) 50 Mg Tablet, 150 MG PO QHS, (Reported) Scheduled PRN Atropine Sulfate (Atropine Sulfate) 1% 2ML Drops, 2 DROP SL Q4HP PRN for EXCESSIVE SECRETIONS Olanzapine (Olanzapine) 10 Mg Tablet, 10 MG PO DAILY PRN for SEVERE NAUSEA Ondansetron HCl (Ondansetron HCl) 8 Mg Tablet, 8 MG PO Q6H PRN for NAUSEA OR VOMITING Prochlorperazine Maleate (Prochlorperazine Maleate) 10 Mg Tablet, 10 MG PO Q8H PRN for NAUSEA Allergies Coded Allergies: rofecoxib (Verified Adverse Reaction, Mild, RESTLESS LEGS, 04/18/19) RESTLESS LEGS BERLIN REYES MD Aug 07, 2019 19:19
== END 2019-08-07 17:33 | disposition home or self-care (01) | DRG 684 ==
LOC: M ED 16:33 → M ED INP 08-01 01:06 → ENRESERV 08-01 01:35 → M MSPAV 08-01 03:15
PROVIDERS: ADMIT Internal Medicine; ATTEND Internal Medicine
DX: N17.9 Acute kidney failure, unspecified (principal); E86.0 Dehydration; Z79.899 Other long term (current) drug therapy; Z88.8 Allergy status to other drugs, medicaments and biological substances; Z85.810 Personal history of malignant neoplasm of tongue; Z93.1 Gastrostomy status; E03.9 Hypothyroidism, unspecified; E78.5 Hyperlipidemia, unspecified; F32.9 Major depressive disorder, single episode, unspecified; D70.1 Agranulocytosis secondary to cancer chemotherapy; R11.0 Nausea; Z92.3 Personal history of irradiation; R13.10 Dysphagia, unspecified

== ENCOUNTER → 2019-10-16 | Outpatient (CLI) | payer OTHER, MEDICARE ==
[~2019-10-16] MED LIST changes: +ATRO1OPD SL; +SCOP1PAT2 TOP
--- NOTE | 2019-10-18 08:44 | RADONC ---
RADIATION ONCOLOGY FOLLOWUP NOTE DATE: 10/16/2019 This is a telemedicine visit. The patient was informed of the risks including security breech, technological failure, inability to perform a comprehensive physical exam which could delay or prevent an accurate diagnosis, and potential complications from treatment decisions rendered over a telemedicine platform. The patient understands and consented to the use of telehealth services phone only. CHART NUMBER: [id number] DIAGNOSIS: Left-sided tongue carcinoma. STAGE: Stage IV B, pT3, pN3b, M0, grade 3. ECOG PERFORMANCE STATUS: 1 FOLLOWUP NOTE: Ms. 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 The patient presents today reporting that she is generally doing somewhat better. She continues to have some weight loss and discomfort upon eating solid foods and reports thick saliva. Her pain, however has improved significantly. The patient reports that she had a PET scan done on September 19 in [place] and she is scheduled to see Dr. Muñoz on October 31. She is continuing her close followup and management with her medical oncologist, Dr. Deal and she will be coming in routinely for blood work and other evaluations there. REVIEW OF SYSTEMS: The patient's review of systems is positive for some saliva changes and discomfort of the mucosa of the oral cavity. She reports that she is not brushing her teeth or tongue because of discomfort. She is able to eat. She denies nausea, vomiting, fevers, chills, night sweats, diplopia, headaches, anxiety or depression, anorexia, visual disturbances, chest pain, urinary or bowel difficulties, or neurological problems. Physical examination was deferred as per COVID-19 precautions. This was a telephone consultation. ASSESSMENT: The patient is clinically doing quite well at this time and is recovering as expected. I did obtain a copy of the patient's PET CT scan, which shows no evidence of disease in the oral cavity and no disease whatsoever in metastatic sites. There is a level II A cervical lymph node with an SUV value of 6.0, but the radiologist believe this was secondary to reactive change having basically just recently finished high-dose radiation to that area. In light of the fact that the patient is scheduled to be seen by Dr. Muñoz in 2 weeks and then routinely after that as well as her close followup with her medical oncologist, Dr. Deal, I am setting her up for followup in this office in February. I will be retiring prior to that and Dr. Javier will be her radiation oncologist on record. cc: MD Jackelyn Reis MD Haidy A Marzouk, MD
== END ==
LOC: M ONCR 08:59
PROVIDERS: ATTEND Radiology Radiation Oncology
DX: C02.1 Malignant neoplasm of border of tongue (principal)

== ENCOUNTER → 2020-02-03 | Outpatient (REF) | payer MEDICARE, OTHER ==
[~2020-02-03] MED LIST changes: -AMLO10TA5 PO; +AMLO1TAB25 PO
[2020-04-25 10:08] LABS: CHOLESTEROL RISK RATIO 5.29 (<5); FREE T4 0.94 NG/DL (0.76-1.46); THYROID STIMULATING HORMONE 0.009 uIU/ML (0.358-3.740)
== END ==
LOC: M LAB 10:57
PROVIDERS: ATTEND Family Medicine
DX: E03.9 Hypothyroidism, unspecified (principal)

== ENCOUNTER 2020-03-17 12:51 | Emergency (ER) | payer MEDICARE, OTHER ==
[~2020-03-17] VITALS: Ht 175.3 cm; Wt 79.9 kg
[2020-03-17 12:53] VITALS: BP 130/69
== END 2020-03-17 14:40 | disposition home or self-care (01) ==
LOC: M ED 12:51
DX: K94.20 Gastrostomy complication, unspecified (principal); I10 Essential (primary) hypertension; E78.5 Hyperlipidemia, unspecified; C32.9 Malignant neoplasm of larynx, unspecified; Z79.899 Other long term (current) drug therapy

== ENCOUNTER → 2020-04-08 | Outpatient (CLI) | payer MEDICARE, OTHER ==
[~2020-04-08] MED LIST changes: +ISOVUE-370 76% 100ML VIAL As Ordered ONE
--- NOTE | 2020-04-08 13:30 | REPVR ---
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 Radiation optimization: All CT scans at this facility use at least one of these dose optimization techniques: automated exposure control; mA and/or kV adjustment per patient size (includes targeted exams where dose is matched to clinical indication); or iterative reconstruction. Contrast material: ISOVUE 370; Contrast volume: 100 ml; Contrast route: INTRAVENOUS (IV); COMPARISON: CT Neck with contrast 04/23/2019 4:59 PM FINDINGS: Paranasal sinuses: There is polypoid mucosal thickening along the floor of the left maxillary sinus. Nasopharynx: Unremarkable. Oropharynx: There is increased ill-defined soft tissue extending from the base of tongue asymmetric to the right/floor of mouth and into the pre epiglottic space. Hypopharynx: Unremarkable. Larynx: There is a suggestion of increased edema involving the epiglottic folds, right greater than left. Retropharyngeal space: Unremarkable. Submandibular/Parotid glands: The left submandibular gland is surgically absent. Thyroid: Normal. No enlarged or calcified nodules. Lymph nodes: Unremarkable. No lymphadenopathy. Trachea: Visualized trachea is unremarkable. Lungs: Unremarkable as visualized. Bones/joints: Unremarkable. No acute fracture. Soft tissues: Unremarkable. No significant soft tissue swelling. IMPRESSION: Suggestion of increased soft tissue thickening involving the base of tongue/floor of mouth with extension into the pre epiglottic space. Apparent thickening of the right aryepiglottic fold is also noted. Direct inspection by ENT may be of benefit. Electronically signed by: Sonja Edgar On 04/08/2020 13:30:19 PM
== END ==
LOC: M RAD 12:48
PROVIDERS: ATTEND Otolaryngology
DX: C06.9 Malignant neoplasm of mouth, unspecified (principal)
CPT/HCPCS: 70491; Q9967

== ENCOUNTER → 2020-04-10 | Outpatient (CLI) | payer MEDICARE, OTHER ==
[~2020-04-10] MED LIST changes: -ISOVUE-370 76% 100ML VIAL As Ordered ONE
--- NOTE | 2020-04-10 14:14 | RADONC ---
Radiation Oncology Hx/FUP Radiation Oncology Hx/FUP Date of Service: Apr 10, 2020 Pt Identifier Luciana Mcknight is a 69 year old female seen for a followup visit today at the department of radiation oncology for a history of [id number] SCC of the left lateral tongue s/p left hemiglossectomy, left neck dissection, and adjuvant chemoradiation 66 Gy in 33 fractions completed 07/30/19. Diagnosis/Treatment History Oncologic History Patient is a never smoker, who presented in 2019 with a left sided tongue mass. She underwent left hemiglossectomy and left radical neck dissection on 02/13/[address] Muñoz at [facility]. Final pathology showed [id number] SCC. Primary tumor was 4.5 cm in greatest extent with 1.4 cm DOI. Margins were free by 6mm. 45 LN were taken with 4 positive for metastasis from IB, II, and IV, with SHIMON. She completed 66 Gy chemoradiation on 07/30/19. She had concurrent q3w cisplatin. Recent data: 04/08/20 CT neck with contrast showing abnormal soft tissue and postoperative anatomy in the left tongue and FOM. No evidence of recurrent meme disease. Interval History She reports recent intentional weight loss. Overall had lost 30+ pounds through the initial course of her treatment. She takes two-zahida PO as her main nutrition. She has a PEG tube which she only uses for medications. She is able to eat some soft foods, such as chocolate chip cookies, but admits most things don't taste good to her, and she has deteriorating dentition which makes chewing difficult. She follows with [facility]. She has persistent dry mouth, sips pepsi for this, not the most bothersome side effect to her. She has some dysphagia, chokes from time to time when she is not careful, but not frequently. She has persistent pain in the anterior tongue as well as the left lateral border of the remaining tongue. She notes that she has a space on the left side of her mouth where food tends to get trapped. She is seeing her ENT next week. Has not had a laryngoscopic exam since completing treatment. Current Therapy Surveillance Stage Stage IVB [id number] left tongue SCC Social History: Never smoker Formerly drank alcohol Allergies / Meds Allergies: Coded Allergies: rofecoxib (Verified Adverse Reaction, Mild, RESTLESS LEGS, 04/18/19) RESTLESS LEGS Home Meds Active Scripts Atropine Sulfate (Atropine Sulfate) 1% 2ML Drops, 2 DROP SL Q4HP PRN for EXCESSIVE SECRETIONS, #1 CONTAINER Prov:BERLIN REYES MD 08/07/19 Scopolamine (Transderm-Scop) 1 Each Patch.td.3, 1 MG TOP Q72H, #10 PATCH Prov:BERLIN REYES MD 08/07/19 Silver Sulfadiazine (Silvadene) 400 Gm Cream..g., 400 GRAMS EXT TID for Apply to skin of neck, #1 GRAMS 5 Refills Prov:Benedicto Flores 07/24/19 Olanzapine (Olanzapine) 10 Mg Tablet, 10 MG PO DAILY PRN for SEVERE NAUSEA, #5 TAB 0 Refills Prov:Jackelyn Deal MD 06/10/19 Prochlorperazine Maleate (Prochlorperazine Maleate) 10 Mg Tablet, 10 MG PO Q8H PRN for NAUSEA for 15 Days, #30 TAB 0 Refills Prov:Jackelyn Deal MD 06/10/19 Ondansetron HCl (Ondansetron HCl) 8 Mg Tablet, 8 MG PO Q6H PRN for NAUSEA OR VOMITING, #30 TAB 0 Refills Prov:Jackelyn Deal MD 06/10/19 Reported Medications Pravastatin Sodium (Pravastatin Sodium) 40 Mg Tablet, 20 MG PO QHS, TAB 07/31/19 Trazodone HCl (Trazodone HCl) 50 Mg Tablet, 150 MG PO QHS, TAB 04/18/19 Quetiapine Fumarate (Quetiapine Fumarate) 400 Mg Tablet, 400 MG PO QHS, TAB 04/18/19 Lorazepam (Lorazepam) 1 Mg Tablet, 1.5 MG PO QHS, TAB 04/18/19 Spironolactone (Spironolactone) 100 Mg Tablet, 100 MG PO DAILY, TAB 04/18/19 Levothyroxine Sodium (Synthroid) 88 Mcg Tablet, 88 MCG PO DAILY, TAB 04/18/19 Gabapentin (Gabapentin) 300 Mg Capsule, 300 MG PO TID, CAP 04/18/19 Sertraline HCl (Sertraline HCl) 100 Mg Tablet, 150 MG PO DAILY, TAB 04/18/19 Aripiprazole (Aripiprazole) 30 Mg Tablet, 15 MG PO DAILY, TAB 04/18/19 Review of Systems Review of Systems Constitutional: Reports: Malaise, Weight Loss; Denies: Chills, Fever Eyes: Denies: Pain, Vision change HEENT: Reports: Dysphagia; Denies: Head Aches, Ear Pain, Sinus Congestion, Sore Throat Skin: Denies: Rash, Lesions Pulmonary: Denies: Dyspnea, Cough Cardiovascular: Denies: Chest Pain Gastrointestinal: Denies: Nausea, Vomiting, Abdominal Pain Genitourinary: Denies: Dysuria, Frequency Hematologic: Denies: Bruising, Bleeding Excessively Musculoskeletal: Denies: Neck pain, Back pain, Midthoracic pain Neurological: Denies: Weakness, Numbness, Incoordination Physical Examination Vital Signs Ht 69" Wt 174 lb T 98 P 69 RR 18 BP 141/80 o@ 99% Pain 1 Fatigue 1 General Exam: Positive: Alert, Cooperative; Negative: No Acute Distress Eye Exam: Positive: PERRLA, Conjunctiva & lids normal, EOMI ENT EXAM: Positive: Other ENT (On oral exam, her remaining teeth are in poor condition, several are broken, there is evident periodontal disease, there are no alveolar lesions. There are no visible or palpable lesions of the buccal mucosa, maxillary or mandibular alveoli, RMT BL, The tongue protrudes midline, there are postoperative changes on the left without evidence of ulceration or palpable lesions, there is radiation fibrosis in the left lateral tongue and in the left FOM. The mucosa in of the left tongue and FOM are pale in the posterior FOM there is a surgical defect with trapped food stuff preent. There are no areas of ulceration or drainage. The posterior oropharynx exhibits pink moist mucosa, the uvula is foreshortened. I feel no lesions in the tonsilar fossae or BL tongue bases. There is no palpable cervical adenopathy. There is postoperative and postradiation fibrosis of the left neck, and submental lymphedema. ) Chest Exam: Positive: Clear to auscultation, Normal air movement Heart Exam: Positive: Rate Normal, Regular Rhythm Abdomen Exam: Positive: Normal bowel sounds, Soft, Other (G tube site CDI); Negative: Tenderness Extremity Exam: Negative: Edema Neuro Exam: Positive: Normal Gait, Cranial Nerves 3-12 NL; Negative: Normal Speech (Dysarthria, post surgical) Psych Exam: Positive: Mental status NL, Mood NL Diagnostic and Laboratory Diagnostic Review Radiologic images, relevant labs and pathology reports were personally reviewed and discussed with Ms. Mcknight. Assessment and Plan Impression Assessment Ms. Mcknight is a 69 year old female with a history of [id number] SCC of the left lateral tongue s/p left hemiglossectomy, left neck dissection, and adjuvant chemoradiation 66 Gy in 33 fractions completed 07/30/19. This is my first time examining her. She has healed from any acute or consequential late effects from her chemoradiation. The deficits she has, including trismus (mild), poor dentition, xerostomia, persistent mouth pain, and dysphagia, are all expected, and unlikely to remit. She is coping reasonably well and her BMI is WNL. She actually said she would like to lose weight. She is taking TF PO as her main nutrition source. As she is only using her feeding tube for medications, in theory it could come out, however, meeting her for the first time today, I do not feel compelled to have it removed until she sees ENT and has another [facility] appointment. She should undergo laryngoscopy (I would have done an exam myself today, but unfortunately did not have my scope available), because I see evidence of edema in the epiglottis and swallowing apparatus on CT, which should be correlated with direct visualization. All told on exam today I did not appreciate any evidence of local recurrence of tumor, but rather expected postoperative and post chemoradiation fibrosis and mucosal effects. Her teeth are poor and in my opinion should be extracted, a denture would improve her QOL and hopefully broaden her dietary options. She has an upcoming dental appointment and I would advise that she be given prophylactic antibiotics before and after procedure. She may also benefit from HBO if she is slow to heal from extractions. Her oral pain level is currently bearable. I will continue to follow her, she requested splitting follow up with me and her other providers due to cost and inconvenience. Thus I will see her in 6 months time to facilitate this. I will perform laryngoscopy at the next visit with me. Performance Status ECOG 1 Plan Follow up in 6 months (would ideally split follow up with other providers) Sees ENT/medical oncology in the coming week Defer opinion on PEG removal for now Recommend dental extractions with antibiotic ppx +/- HBO as an adjuvant Ms. Mcknight was encouraged to call with questions or concerns in the interim period. SAILAJA SARABIA MD Apr 10, 2020 14:14
== END ==
LOC: M ONCR 09:28
PROVIDERS: ATTEND Radiology Radiation Oncology
DX: C02.1 Malignant neoplasm of border of tongue (principal)

== ENCOUNTER → 2020-05-04 | Outpatient (CLI) | payer OTHER, MEDICARE ==
[~2020-05-04] MED LIST changes: +ISOVUE-370 76% 100ML VIAL As Ordered ONE
--- NOTE | 2020-05-04 13:28 | REPVR ---
PROCEDURE INFORMATION: Exam: CT Neck With Contrast Exam date and time: 05/04/2020 12:52 PM Age: 69 years old Clinical indication: Condition or disease; Cancer; Other: Tongue; Additional info: Malignant neoplasm of tongue TECHNIQUE: Imaging protocol: Computed tomography images of the neck with intravenous contrast. Radiation optimization: All CT scans at this facility use at least one of these dose optimization techniques: automated exposure control; mA and/or kV adjustment per patient size (includes targeted exams where dose is matched to clinical indication); or iterative reconstruction. Contrast material: ISOVUE 370; Contrast volume: 100 ml; Contrast route: INTRAVENOUS (IV); COMPARISON: CT Neck with contrast 04/08/2020 1:14 PM FINDINGS: Paranasal sinuses: There is mild mucosal thickening along the floor of the left maxillary sinus. Nasopharynx: Unremarkable. Oropharynx: There is persistent prominence of the base of tongue/floor of mouth with a suggestion of focal extension into the pre epiglottic space. Hypopharynx: Unremarkable. Larynx: Edema of the epiglottis and aryepiglottic folds presumably reflects radiation related changes. Retropharyngeal space: Unremarkable. Submandibular/Parotid glands: The right submandibular gland appears hyperemic and increased in size as compared to preceding examination, with overlying soft tissue induration. Sialoadenitis is a consideration in the appropriate clinical setting. The left submandibular gland is surgically absent. Thyroid: Normal. No enlarged or calcified nodules. Lymph nodes: Unremarkable. No lymphadenopathy. Trachea: Visualized trachea is unremarkable. Lungs: Unremarkable as visualized. Bones/joints: There is degenerative disc disease and spondylosis. No acute fracture. Soft tissues: Unremarkable. No significant soft tissue swelling. IMPRESSION: 1. Suggestion of persistent soft tissue prominence involving the base of tongue/floor of mouth with extension into the pre epiglottic space. There is no progressive soft tissue abnormality. Direct inspection by ENT is recommended. Edema of the epiglottis and aryepiglottic folds likely reflects treatment related changes. 2. Question right submandibular sialoadenitis versus treatment related changes. Electronically signed by: Sonja Edgar On 05/04/2020 13:28:18 PM
--- NOTE | 2020-05-04 13:30 | REP ---
INDICATION: MALIGNANT NEOPLASM OF TONGUE. COMPARISON: 04/23/2019. TECHNIQUE: CT chest performed following the intravenous administration of 100 cc of Isovue 370. Sagittal and coronal reconstruction images are performed. FINDINGS: Lungs: There is mild diffuse interstitial infiltrate throughout the left lung, more so in the left lower lobe. There is also mild hazy alveolar infiltrate in the inferior left lower lobe. There is minor scattered fibrotic change in the right lung. No pulmonary nodule is seen. Mediastinum: No adenopathy. [place]: No adenopathy. Axilla: No adenopathy. Pleura: No effusion. Heart: Not enlarged. Thoracic aorta: No aneurysm or dissection. Upper abdominal structures: There is a gastrostomy tube in place. There is a stable ill-defined hypodense area in the right lobe of the liver peripherally. There is a right renal cyst. Visualized osseous structures: Unremarkable. There are bilateral breast implants which appear grossly intact. There is right MediPort catheter present. IMPRESSION: There is mild diffuse interstitial infiltrate throughout the left lung, more so in the left lower lobe. There is also mild hazy alveolar infiltrate in the inferior left lower lobe. <Electronically signed by Benedicto Heller > 05/04/20 [id number]
== END ==
LOC: M RAD 12:14
PROVIDERS: ATTEND Specialist
DX: C02.9 Malignant neoplasm of tongue, unspecified (principal); R91.8 Other nonspecific abnormal finding of lung field
CPT/HCPCS: 70491; 71260; Q9967